=== PATIENT | male | born 1960 | race Caucasian/White ===

== ENCOUNTER → 2017-04-05 09:48 | Outpatient (POV) | payer BC, SELFPAY | PROVIDERS: Family Provider Internal Medicine; PCP Internal Medicine; Visit Provider Dermatology | DX: Z00.00 Encounter for general adult medical examination without abnormal findings (principal) ==

== ENCOUNTER → 2019-03-08 07:35 | Outpatient (CLI) | payer BC, SELFPAY ==
[2019-03-08 09:59] LABS: Alanine Aminotransferase 32 U/L (12-78); Albumin Level 3.7 gm/dL (3.4-5.0); Albumin/Globulin Ratio 1.1 (1.1-1.8); Alkaline Phosphatase 55 U/L (46-116); Anion Gap 12.3 mEq/L (5-15); Aspartate Amino Transferase 21 U/L (15-37); Bilirubin,Total 0.5 mg/dL (0.2-1.0); Blood Urea Nitrogen 12 mg/dL (7-18); Calcium 8.5 mg/dL (8.5-10.1); Carbon Dioxide 30 mmol/L (21.0-32.0); Chloride 104 mmol/L (98-107); Chol/HDL Ratio 5.9 (1-3.5); Cholesterol 208 mg/dL (140-200); Estimated Glomerular Filt Rate 69 ml/min (>60); GFR (African American) 83 ML/MIN (>60); Globulin 3.3 gm/dl (1.3-3.2); Glucose 102 mg/dL (74-106); HDL Cholesterol 35 mg/dL (27-67); LDL Cholesterol 138 mg/dL (0-130); Potassium 4.3 mmoL/L (3.5-5.1); Prostate Specific Ag, Diagnost 3.65 ng/mL (0.0-4.0); Sodium 142 mmol/L (136-145); Triglycerides 174 mg/dL (30-200); VLDL Cholesterol 35 mg/dL (0-40)
== END ==
PROVIDERS: Visit Provider Internal Medicine
DX: I10 Essential (primary) hypertension (principal); E78.5 Hyperlipidemia, unspecified; K58.0 Irritable bowel syndrome with diarrhea; R97.20 Elevated prostate specific antigen [PSA]
CPT/HCPCS: 36415; 80053; 80061; 84153

== ENCOUNTER → 2019-04-01 14:41 | Outpatient (POV) | payer BC, SELFPAY | PROVIDERS: Visit Provider Dermatology | DX: Z00.00 Encounter for general adult medical examination without abnormal findings (principal) ==

== ENCOUNTER 2020-03-25 09:03 | Emergency (ER) | payer BC, SELFPAY ==
[2020-03-25 09:10] VITALS: BP 137/81; PULSE 85; RESP 20; TEMP 37; O2SAT 100; BMI 30.2
--- NOTE | 2020-03-25 09:23 | HMH.EDUTC ---
[facility] [place] Disposition Clinical Impression: Sinusitis Qualifiers: Sinusitis location: unspecified location Chronicity: acute Recurrence: non-recurrent Qualified Code(s): J01.90 - Acute sinusitis, unspecified Disposition: Home, Self-Care Condition on Discharge: Good Instructions: Sinusitis, DI for Sinusitis Additional Instructions: Drink plenty of fluids. Take tylenol for pain or fever. Return if you begin to have difficulty breathing. Follow up with your regular doctor. GO TO THE ER FOR ANY WORSENING SYMPTOMS Prescriptions: methylPREDNISolone [Medrol] 4 mg PO DIRECTED 6 Days #21 tab.[email or web address] Transmission Status: Received by [id number] Cefdinir [Omnicef 300mg Capsule] 300 mg PO BID #20 cap Transmission Status: Received by [id number] Benzonatate [Tessalon Perle 100mg Cap] 100 mg PO TIDP PRN #30 cap PRN Reason: Cough Transmission Status: Received by [id number] Referrals: Yoni Norman [Primary Care Provider] - Forms: Work/School Release Time of Disposition: 09:30 Medical Decision Making - Medical Records Medical records reviewed: No: I reviewed the patient's medical records. - Jose Luis Inquiry Pt receiving controlled substance: No Vital Signs: 03/25/20 09:10 03/25/20 09:38 Temperature 98.6 F 98.6 F Temperature Source Oral Pulse Rate 85 Pulse Rate [Right Brachial] 85 Respiratory Rate 20 20 Blood Pressure 137/81 Blood Pressure [Right Arm] 137/81 Blood Pressure Mean [Right Arm] 99 Blood Pressure Source [Right Arm] Automatic Cuff Blood Pressure Position [Right Arm] Sitting 02 Sat by Pulse Oximetry 100 Oxygen Delivery Method Room Air [facility] [place] HPI - General Stated complaint: Sinuses Time Seen by Provider: 03/25/20 09:23 - History of Present Illness Provider Complaint: He c/o 2 days of worsening sinus congestion. He works at [employer] and he gets tested weekly for covid. He states he had a negative covid test 2 days ago (since his current symptoms began). - Related Data Previous Rx's Medication Instructions Recorded Albuterol Sulfate [Albuterol HFA 1 - 2 puffs IH Q4-6H PRN #1 inh 05/08/19 Inhaler] Brompheniramine/Pseudoephed/Dm 5 ml PO Q6HP PRN #240 syrup 05/08/19 [Bromfed Dm Cough Syrup] Cefdinir [Omnicef 300mg Capsule] 300 mg PO BID #20 cap 05/08/19 methylPREDNISolone [Medrol] 4 mg PO DIRECTED 6 Days #21 05/08/19 tab.ds.pk Benzonatate [Tessalon Perle 100mg 100 mg PO TIDP PRN #30 cap 03/25/20 Cap] Cefdinir [Omnicef 300mg Capsule] 300 mg PO BID #20 cap 03/25/20 methylPREDNISolone [Medrol] 4 mg PO DIRECTED 6 Days #21 03/25/20 tab.ds.pk Allergies Allergy/AdvReac Type Severity Reaction Status Date / Time No Known Allergies Allergy Verified 11/03/17 18:33 [facility] History - Hepatitis A Screen Attestation statement:: This patient has been screened for Hepatitis A risk factors. I have reviewed the patient's past medical history: Yes Medical History: Denies:: Cancer, Diabetes Mellitus Type 1, Diabetes Mellitus Type 2, Hypertension, MRSA Other Surgeries: Yes: Cholecystectomy Amputation: No Fractures: No - Social History Smoking Status: Never smoker Alcohol Intake: never Occupational Status: other ROS Obtained: Yes All systems reviewed & no additional complaints - Constitutional Constitutional: Reports system reviewed and no additional complaints, except as docu - Eyes Eyes: Reports system reviewed and no additional complaints, except as docu - ENT Ears, Nose, Mouth, and Throat: Reports system reviewed and no additional complaints, except as docu - Cardiovascular Cardiovascular: Reports system reviewed and no additional complaints, except as docu - Respiratory Respiratory: Yes system reviewed and no additional complaints, except as docu - Gastrointestinal Gastrointestingal: Reports: system reviewed and no additional complaints, except as docu Physical Exam - General General appearance: juana
[2020-03-25 09:38] VITALS: BP 137/81; PULSE 85; RESP 20; TEMP 37; O2SAT 100
== END 2020-03-25 09:40 | disposition home or self-care (01) ==
PROVIDERS: Emergency Provider Nurse Practitioner Family; PCP Internal Medicine
DX: J01.90 Acute sinusitis, unspecified (principal); E78.5 Hyperlipidemia, unspecified
CPT/HCPCS: 99201

== ENCOUNTER → 2020-08-06 09:52 | Outpatient (CLI) | payer BC, SELFPAY ==
--- NOTE | 2020-08-06 09:56 | XR_ITS ---
PROCEDURE: XR CALCANEUS RT MIN 2V CLINICAL INDICATION: RT HEEL INJURY 1 WEEK AGO, PAIN COMPARISON: No exams were available for comparison FINDINGS: No fracture or dislocation. No lytic or blastic change. There is normal mineralization. The joint spaces are well-preserved. No significant degenerative/arthritic changes. No erosive changes evident. Other findings:None. IMPRESSION: No acute findings. Dictated by: Dylan York MD 08/06/2020 11:26 Dylan York MD in [place] 08/06/2020 11:26
== END ==
PROVIDERS: PCP Internal Medicine; Visit Provider Internal Medicine
DX: S99.921A Unspecified injury of right foot, initial encounter (principal); M79.671 Pain in right foot
CPT/HCPCS: 73650

== ENCOUNTER 2021-03-01 15:56 | Emergency (ER) | payer BC, SELFPAY ==
[2021-03-01 16:41] VITALS: BP 124/89; PULSE 91; RESP 20; TEMP 36.9; O2SAT 97; BMI 31.7
[2021-03-01 16:53] LABS: UTC Strep Screen (Rapid) Positive (Negative)
--- NOTE | 2021-03-01 17:21 | HMH.EDUTC ---
[facility] [place] Clinical Impression: Strep throat Sinusitis Qualifiers: Sinusitis location: unspecified location Chronicity: acute Recurrence: non-recurrent Qualified Code(s): J01.90 - Acute sinusitis, unspecified Disposition: Home, Self-Care Condition on Discharge: Good Instructions: Strep Throat, DI for Strep Throat Additional Instructions: Drink plenty of fluids. Take tylenol or ibuprofen for pain or fever. Take the medications as directed. Follow up with your regular doctor. GO TO THE ER FOR ANY WORSENING SYMPTOMS Throw your tooth brush away and get a new one. Prescriptions: Benzonatate [Benzonatate 100mg cap] 100 mg PO TIDP PRN #30 cap PRN Reason: Cough Transmission Status: Received by [id number] predniSONE [Prednisone 20mg Tab] 20 mg PO BID 3 Days #6 tab Transmission Status: Received by [id number] Azithromycin [Z-Demarco 250mg Tab*] 250 mg PO UD DOSE PK #6 tab Transmission Status: Received by [id number] Referrals: Yoni Norman [Primary Care Provider] - Forms: Work/School Release Time of Disposition: 17:28 Medical Decision Making - Medical Records Medical records reviewed: No: I reviewed the patient's medical records. - Jose Luis Inquiry Pt receiving controlled substance: No Vital Signs: 03/01/21 16:41 03/01/21 17:31 Temperature 98.4 F 98.4 F Temperature Source Oral Pulse Rate 91 H Pulse Rate [Left] 91 H Respiratory Rate 20 20 Blood Pressure 124/89 Blood Pressure [Right Arm] 124/89 Blood Pressure Mean [Right Arm] 100 02 Sat by Pulse Oximetry 97 - Lab Data Lab results reviewed: Yes: I reviewed the patient's lab results. Lab Results 03/01/21 16:53: Strep Scn Rapid Clinic Positive A [facility] [place] - General Stated complaint: sore throat,congestion Time Seen by Provider: 03/01/21 17:21 Mode of Arrival: Ambulatory Source of Information: Patient Limitations: No Limitations Description of Symptoms (Recalled from Triage Doc. by RN): pt c/o STOUT, sinus congestion/drainage and sore throat. HEENT Symptoms (Recalled from RN notes): Yes (nasal drainage/congestion and sore throat) Resp Symptoms (Recalled from RN notes): No Skin Symptoms (Recalled from RN notes): No MS Symptoms (Recalled from RN notes): No Functional Status (Recalled from RN notes): wnl - History of Present Illness Provider Complaint: He states that for the past 2 days he has had sinus drainage and a sore throat. She has a cough also. He has been fully vaccinated against covid-19. - Related Data Home Medications Medication Instructions Recorded Confirmed citalopram 20 mg tablet 20 mg PO DAILY 11/25/20 11/25/20 colestipol 1 gram tablet 1 g PO BID 11/25/20 11/25/20 esomeprazole magnesium 40 mg 40 mg PO DAILY 11/25/20 11/25/20 capsule,delayed release fluticasone propionate 50 1 spray INTRANASAL DAILY 11/25/20 11/25/20 mcg/actuation nasal spray,suspension Previous Rx's Medication Instructions Recorded Azithromycin [Z-Demarco 250mg Tab*] 250 mg PO UD DOSE PK #6 tab 03/01/21 Benzonatate [Benzonatate 100mg 100 mg PO TIDP PRN #30 cap 03/01/21 cap] predniSONE [Prednisone 20mg 20 mg PO BID 3 Days #6 tab 03/01/21 Tab] Allergies Allergy/AdvReac Type Severity Reaction Status Date / Time No Known Drug Allergies Allergy Unknown Verified 11/25/20 08:53 - Worker's Comp Is this a Worker's Comp case?: No [facility] History - Hepatitis A Screen Drug use history?: No High risk sexual behaviors?: No History of sexually transmitted infection?: No Currently employed?: No Childcare worker?: No Do you have indoor plumbing?: Yes Do you have electricity?: Yes Attestation statement:: This patient has been screened for Hepatitis A risk factors. I have reviewed the patient's past medical history: Yes Medical History: Reports:: Gastroesophageal Reflux Disease(GERD) Denies:: Cancer, Diabetes Mellitus Type 1, Diabetes Mellitus Type 2, Hypertension,
[2021-03-01 17:31] VITALS: BP 124/89; PULSE 91; RESP 20; TEMP 36.9
== END 2021-03-01 17:42 | disposition home or self-care (01) ==
PROVIDERS: Emergency Provider Nurse Practitioner Family; PCP Internal Medicine
DX: J02.0 Streptococcal pharyngitis (principal); J01.90 Acute sinusitis, unspecified; K21.9 Gastro-esophageal reflux disease without esophagitis; Z87.891 Personal history of nicotine dependence
CPT/HCPCS: 87880; 99202; G0463

== ENCOUNTER → 2021-04-29 11:53 | Outpatient (CLI) | payer BC, SELFPAY ==
[2021-04-29 12:38] LABS: Alanine Aminotransferase 32 U/L (12-78); Albumin Level 4.5 g/dl (3.5-5.0); Albumin/Globulin Ratio 1.7 (1.1-1.8); Alkaline Phosphatase 57 U/L (38-126); Aspartate Amino Transferase 43 U/L (17-59); Bilirubin,Total 0.8 mg/dl (0.2-1.3); Blood Urea Nitrogen 17 mg/dl (9-20); Calcium 9.3 mg/dl (8.4-10.2); Carbon Dioxide 27 mmol/L (22.0-30.0); Chloride 104 mmol/L (98-107); Chol/HDL Ratio 6.4 (1-3.5); Cholesterol 210 mg/dl (140-200); Estimated Glomerular Filt Rate 69 ml/min (>60); GFR (African American) 83 ML/MIN (>60); Globulin 2.6 g/dL (1.3-3.2); Glucose 99 mg/dl (74-100); HDL Cholesterol 33 mg/dl (40-60); Sodium 140 mmol/L (136-145); Total Protein,Serum 7.1 g/dl (6.3-8.2); Triglycerides 141 mg/dl (30-150); VLDL Cholesterol 28 mg/dL (0-40)
[2021-04-29 12:49] LABS: Direct LDL Cholesterol 145.37 mg/dL (100-129)
== END ==
PROVIDERS: Visit Provider Internal Medicine
DX: K58.0 Irritable bowel syndrome with diarrhea (principal); K21.9 Gastro-esophageal reflux disease without esophagitis; E78.5 Hyperlipidemia, unspecified
CPT/HCPCS: 80053; 80061; 83735

== ENCOUNTER 2021-07-18 16:19 | Emergency (ER) | payer BC, SELFPAY ==
[2021-07-18 17:11] VITALS: BP 129/71; PULSE 72; RESP 19; TEMP 36.5; O2SAT 95; BMI 31.0
--- NOTE | 2021-07-18 17:36 | HMH.EDUTC ---
[facility] [place] Clinical Impression: Sinusitis Qualifiers: Sinusitis location: unspecified location Chronicity: acute Recurrence: non-recurrent Qualified Code(s): J01.90 - Acute sinusitis, unspecified Disposition: Home, Self-Care Condition on Discharge: Good Instructions: Sinusitis, DI for Sinusitis Additional Instructions: Drink plenty of fluids. Take tylenol or ibuprofen for pain or fever. Take the medications as directed. Follow up with your regular doctor. GO TO THE ER FOR ANY WORSENING SYMPTOMS Don't start the oral steroids until tomorrow, since you had the shot here today. Prescriptions: Amoxicillin/Potassium Clav [Amox-Clav 875-125 mg Tablet] 1 tab PO BID #20 tab Transmission Status: Received by [facility] Benzonatate [Benzonatate 100mg cap] 100 mg PO TIDP PRN #30 cap PRN Reason: Cough Transmission Status: Received by [facility] methylPREDNISolone [Medrol] 4 mg PO DIRECTED 6 Days #21 packet Transmission Status: Received by [facility] Referrals: Yoni Norman [Primary Care Provider] - Time of Disposition: 17:43 Medical Decision Making - Medical Records Medical records reviewed: No: I reviewed the patient's medical records. - Jose Luis Inquiry Pt receiving controlled substance: No Vital Signs: 07/18/21 17:11 07/18/21 17:58 Temperature 97.7 F 97.7 F Temperature Source Oral Pulse Rate 72 Pulse Rate [Left] 72 Respiratory Rate 19 19 Blood Pressure 129/71 Blood Pressure [Right Arm] 129/71 Blood Pressure Mean [Right Arm] 90 02 Sat by Pulse Oximetry 95 Orders (Tests/Meds): ED MEDICATIONS Discontinued Medications Generic Name Dose Route Start Last Admin Trade Name Freq PRN Reason Stop Dose Admin Ceftriaxone Sodium 1 gm 07/18/21 17:35 07/18/21 17:45 Ceftriaxone 1gm Vial IM 07/18/21 17:36 1 gm ONCE ONE Administration Lidocaine HCl 0 ml 07/18/21 17:35 07/18/21 17:45 Lidocaine 1% 5ml Pf Vial IM 07/18/21 17:36 2 ml ONCE ONE Administration Methylprednisolone Sodium Succinate 125 mg 07/18/21 17:35 07/18/21 17:45 Methylprednisolone Sod Succ 125mg Vial IM 07/18/21 17:36 125 mg ONCE ONE Administration [facility] [place] - General Stated complaint: sinus,congestion Time Seen by Provider: 07/18/21 17:36 Mode of Arrival: Ambulatory Source of Information: Patient Limitations: No Limitations Description of Symptoms (Recalled from Triage Doc. by RN): pt c/o sinus pressure/congestion/drainage and sneezing. HEENT Symptoms (Recalled from RN notes): Yes Resp Symptoms (Recalled from RN notes): No Skin Symptoms (Recalled from RN notes): No MS Symptoms (Recalled from RN notes): No Functional Status (Recalled from RN notes): wnl - History of Present Illness Provider Complaint: He c/o sinus congestion and nasal congestion for the past 5 days. - Related Data Home Medications Medication Instructions Recorded Confirmed citalopram 20 mg tablet 20 mg PO DAILY 11/25/20 11/25/20 colestipol 1 gram tablet 1 g PO BID 11/25/20 11/25/20 esomeprazole magnesium 40 mg 40 mg PO DAILY 11/25/20 11/25/20 capsule,delayed release fluticasone propionate 50 1 spray INTRANASAL DAILY 11/25/20 11/25/20 mcg/actuation nasal spray,suspension Previous Rx's Medication Instructions Recorded Azithromycin [Z-Demarco 250mg Tab*] 250 mg PO UD DOSE PK #6 tab 03/01/21 Benzonatate [Benzonatate 100mg 100 mg PO TIDP PRN #30 cap 03/01/21 cap] predniSONE [Prednisone 20mg 20 mg PO BID 3 Days #6 tab 03/01/21 Tab] Amoxicillin/Potassium Clav 1 tab PO BID #20 tab 07/18/21 [Amox-Clav 875-125 mg Tablet] Benzonatate [Benzonatate 100mg 100 mg PO TIDP PRN #30 cap 07/18/21 cap] methylPREDNISolone [Medrol] 4 mg PO DIRECTED 6 Days #21 07/18/21 packet Allergies Allergy/AdvReac Type Severity Reaction Status Date / Time No Known Drug Allergies Allergy Unknown Verified 11/25/20 08:53 - Worker's Comp Is th
[2021-07-18 17:58] VITALS: BP 129/71; PULSE 72; RESP 19; TEMP 36.5
== END 2021-07-18 18:00 | disposition home or self-care (01) ==
PROVIDERS: Emergency Provider Nurse Practitioner Family; PCP Internal Medicine
DX: J01.90 Acute sinusitis, unspecified (principal); K21.9 Gastro-esophageal reflux disease without esophagitis; Z79.51 Long term (current) use of inhaled steroids; Z79.52 Long term (current) use of systemic steroids; Z79.899 Other long term (current) drug therapy; Z87.891 Personal history of nicotine dependence
CPT/HCPCS: 96372; 99213; G0463; J0696

== ENCOUNTER → 2021-11-29 15:23 | Outpatient (CLI) | payer BC, SELFPAY | PROVIDERS: PCP Internal Medicine; Visit Provider Internal Medicine | DX: G47.33 Obstructive sleep apnea (adult) (pediatric) (principal); R40.0 Somnolence; R06.83 Snoring | CPT/HCPCS: G0399 ==

== ENCOUNTER 2021-12-08 11:44 | Emergency (ER) | payer BC, OTHER, SELFPAY ==
[2021-12-08 12:05] VITALS: BP 129/80; PULSE 85; RESP 19; TEMP 36.7; O2SAT 97; BMI 30.2
--- NOTE | 2021-12-08 12:34 | EXP.UTC ---
Discharge Plan Disposition Patient Disposition: Home, Self-Care Condition: Good Prescriptions Prescriptions: New methylprednisolone [Medrol (Demarco)] 4 mg tablets,dose pack See Rx Instructions .Route .COMPLEX 6 Days Qty: 21 0RF Rx Instructions: taper pack; amoxicillin-pot clavulanate 875-125 mg Tablet 1 tab PO Q12H Qty: 20 0RF No Action citalopram 20 mg tablet 20 mg PO DAILY colestipol 1 gram tablet 1 g PO BID esomeprazole magnesium 40 mg capsule,delayed release(DR/EC) 40 mg PO DAILY fluticasone propionate 50 mcg/actuation spray,suspension 1 spray INTRANASAL DAILY Rx Instructions: administer into each nostril prednisone 20 MG tablet 20 mg PO BID 3 Days Qty: 6 0RF benzonatate 100 MG capsule 100 mg PO TIDP PRN (Reason: Cough) Qty: 30 0RF methylprednisolone 4 MG tablets,dose pack 4 mg PO DIRECTED 6 Days Qty: 21 0RF Referrals Follow up/Referrals: Yoni Norman MD [Primary Care Provider] - See instructions Activity Restrictions/Add. Instructions Additional Instructions/Restrictions: Monitor Temp, Over the counter Motrin or Tylenol as directed/as needed Tylenol every 4 hours and Motrin every 6 hours (as long as your family doctor has told you that you can take it) for fever or pain. and straight to ER if unable to lower temp less than 101.0 after medication given *Warm salt water gargles may help to soothe the throat *Throat Lozenges? *Warm fluids like tea with honey may help to soothe the throat? *Sleep elevated *Humidifier/Vaporizer Follow up IMMEDIATELY for new or worsening symptoms or no Noticeable improvement over the next 48-72 hours. 911 for difficulty breathing or swallowing Clinical Impressions Clinical Impression: Sinusitis Instructions Patient Instructions: DI for Sinusitis, Sinusitis, Middle Ear Infection Discharge ED Provider: Shahnaz Burr [facility] [place] General Stated complaint: sinus congestion Mode of Arrival: Ambulatory Source of Information: Patient Limitations: No Limitations Time Seen by Provider: 12/08/21 12:35 Description of Symptoms (Recalled from Triage Doc. by RN): PATIENT C/O SINUS PRESSURE AND COUGHING UP MUCOUS X 1 WEEK HEENT Symptoms (Recalled from RN notes): Yes Resp Symptoms (Recalled from RN notes): Yes Skin Symptoms (Recalled from RN notes): No MS Symptoms (Recalled from RN notes): No Functional Status (Recalled from RN notes): WNL History of Present Illness Provider Complaint: Patient state that he went camping about a week ago and has been having sinus problems ever since States that he is having sinus pain and pressure, cough, pain in both ears and feeling of fullness in ears States that today he coughed up a little mucous so he came in to get checked before it got into his chest Related Data Home Medications Medication Instructions Recorded Confirmed citalopram 20 mg tablet 20 mg PO DAILY 11/25/20 10/21/21 colestipol 1 gram tablet 1 g PO BID 11/25/20 10/21/21 esomeprazole magnesium 40 mg 40 mg PO DAILY 11/25/20 10/21/21 capsule,delayed release fluticasone propionate 50 1 spray intranasal DAILY 11/25/20 10/21/21 mcg/actuation nasal spray,suspension Previous Rx's Medication Instructions Recorded prednisone 20 mg tablet 20 mg PO BID 3 days #6 tabs 03/01/21 benzonatate 100 mg capsule 100 mg PO TIDP PRN Cough #30 caps 07/18/21 methylprednisolone 4 mg tablets in 4 mg PO DIRECTED 6 days #21 07/18/21 a dose pack packets amoxicillin 875 mg-potassium 1 tab PO Q12H #20 tabs 12/08/21 clavulanate 125 mg tablet methylprednisolone 4 mg tablets in See Rx Instructions .Route 12/08/21 a dose pack (Medrol (Demarco)) .COMPLEX 6 days #21 tabs Allergies Allergy/AdvReac Type Severity Reaction Status Date / Time No Known Drug Allergies Allergy Unknown Verified 10/21/21 09:45 Worker's Comp Is this a Worker's Comp case?: No PFSH PFSH Surgical History (Updated 12/08/21
[2021-12-08 12:46] VITALS: BP 129/80; PULSE 85; RESP 19; TEMP 36.7; O2SAT 97
== END 2021-12-08 12:49 | disposition home or self-care (01) ==
PROVIDERS: Emergency Provider Nurse Practitioner; PCP Internal Medicine
DX: J32.9 Chronic sinusitis, unspecified (principal)
CPT/HCPCS: 99212; G0463

== ENCOUNTER → 2022-03-31 11:33 | Outpatient (CLI) | payer BC, OTHER, SELFPAY ==
[2022-03-31 14:34] LABS: Basophils # 0.1 K/mm3 (0-0.2); Basophils % 1.9 % (0.1-2.0); Eosinophils # 0.2 K/mm3 (0.0-0.4); Hematocrit 46.5 % (42.0-52.0); Hemoglobin 15.6 g/dL (14.1-18.0); Lymphocytes # 1.4 K/mm3 (0.7-4.5); Lymphocytes % 32.8 % (10-50); Mean Corpuscular HGB Conc 33.6 g/dL (31.8-35.4); Mean Corpuscular Hemoglobin 31.5 pg (27.0-31.2); Mean Corpuscular Volume 93.7 fl (80-94); Mean Platelet Volume 8.5 fl (7.4-10.4); Monocytes # 0.3 K/mm3 (0.1-1.0); Monocytes % 8.1 % (1.7-9.3); Neutrophils # 2.2 K/mm3 (1.8-7.8); Neutrophils % 52.3 % (37.0-80.0); Platelet Count 283 K/mm3 (142-424); Red Blood Count 4.96 M/mm3 (4.60-6.20); Red Cell Distribution Width 12.7 % (11.5-17.5); White Blood Count 4.3 K/mm3 (4.8-10.8)
[2022-03-31 14:54] LABS: Alanine Aminotransferase 34 U/L (12-78); Albumin Level 4.3 g/dl (3.5-5.0); Albumin/Globulin Ratio 1.6 (1.1-1.8); Alkaline Phosphatase 62 U/L (38-126); Aspartate Amino Transferase 32 U/L (17-59); Bilirubin,Total 0.5 mg/dl (0.2-1.3); Blood Urea Nitrogen 18 mg/dl (9-20); Calcium 8.6 mg/dl (8.4-10.2); Carbon Dioxide 28 mmol/L (22.0-30.0); Chloride 103 mmol/L (98-107); Chol/HDL Ratio 5.8 (1-3.5); Cholesterol 192 mg/dl (140-200); Estimated Glomerular Filt Rate 68 ml/min (>60); GFR (African American) 83 ML/MIN (>60); Globulin 2.7 g/dL (1.3-3.2); Glucose 101 mg/dl (74-100); HDL Cholesterol 33 mg/dl (40-60); Sodium 137 mmol/L (136-145); Triglycerides 188 mg/dl (30-150); VLDL Cholesterol 38 mg/dL (0-40)
[2022-03-31 15:05] LABS: Direct LDL Cholesterol 119.53 mg/dL (100-129)
[2022-03-31 15:24] LABS: Prostate Specific Ag Screen 5.4 ng/ml (0.0-4.0)
== END ==
PROVIDERS: PCP Internal Medicine; Visit Provider Internal Medicine
DX: J30.9 Allergic rhinitis, unspecified (principal); E78.5 Hyperlipidemia, unspecified; K21.9 Gastro-esophageal reflux disease without esophagitis; F41.9 Anxiety disorder, unspecified; Z12.5 Encounter for screening for malignant neoplasm of prostate
CPT/HCPCS: 80053; 80061; 85025; G0103

== ENCOUNTER 2022-05-20 15:46 | Emergency (ER) | payer BC, OTHER, SELFPAY ==
--- NOTE | 2022-05-20 15:50 | EXP.UTC ---
Discharge Plan Prescriptions Prescriptions: No Action citalopram 20 mg tablet 20 mg PO DAILY colestipol 1 gram tablet 1 g PO BID esomeprazole magnesium 40 mg capsule,delayed release(DR/EC) 40 mg PO DAILY fluticasone propionate 50 mcg/actuation spray,suspension 1 spray INTRANASAL DAILY Rx Instructions: administer into each nostril prednisone 20 MG tablet 20 mg PO BID 3 Days Qty: 6 0RF methylprednisolone [Medrol (Demarco)] 4 mg tablets,dose pack See Rx Instructions .Route .COMPLEX 6 Days Qty: 21 0RF Rx Instructions: taper pack; amoxicillin-pot clavulanate 875-125 mg Tablet 1 tab PO Q12H Qty: 20 0RF benzonatate 100 MG capsule 100 mg PO TIDP PRN (Reason: Cough) Qty: 30 0RF methylprednisolone 4 MG tablets,dose pack 4 mg PO DIRECTED 6 Days Qty: 21 0RF Referrals Follow up/Referrals: Yoni Norman MD [Primary Care Provider] - See instructions Discharge ED Provider: Bud ([facility])[place] [facility] [place] H[place] General Stated complaint: sinus pressure,cough benites Mode of Arrival: Ambulatory Source of Information: Patient and Parent(s) Limitations: No Limitations Time Seen by Provider: 05/20/22 15:50 HEENT Symptoms (Recalled from RN notes): Yes Resp Symptoms (Recalled from RN notes): No Related Data Home Medications Medication Instructions Recorded Confirmed citalopram 20 mg tablet 20 mg PO DAILY 11/25/20 10/21/21 colestipol 1 gram tablet 1 g PO BID 11/25/20 10/21/21 esomeprazole magnesium 40 mg 40 mg PO DAILY 11/25/20 10/21/21 capsule,delayed release fluticasone propionate 50 1 spray intranasal DAILY 11/25/20 10/21/21 mcg/actuation nasal spray,suspension Previous Rx's Medication Instructions Recorded prednisone 20 mg tablet 20 mg PO BID 3 days #6 tabs 03/01/21 benzonatate 100 mg capsule 100 mg PO TIDP PRN Cough #30 caps 07/18/21 methylprednisolone 4 mg tablets in 4 mg PO DIRECTED 6 days #21 07/18/21 a dose pack packets amoxicillin 875 mg-potassium 1 tab PO Q12H #20 tabs 12/08/21 clavulanate 125 mg tablet methylprednisolone 4 mg tablets in See Rx Instructions .Route 09/08/22 a dose pack (Medrol (Demarco)) .COMPLEX 6 days #21 tabs Allergies Allergy/AdvReac Type Severity Reaction Status Date / Time No Known Drug Allergies Allergy Unknown Verified 10/21/21 09:45 [facility] Disclaimer: The information contained in this section may have been updated after the patient was seen, as this information can be updated by other users. Surgical History (Updated 12/08/21 @ 12:21 by Carol Greer RN) History of cholecystectomy Social History Smoking Status: Former smoker second hand exposure: No alcohol intake: current substance use type: denies use current occupational status: employed Travel in the last 8 weeks: None household members: spouse housing: house
[2022-05-20 16:00] VITALS: BP 117/86; PULSE 86; RESP 17; TEMP 36.8; O2SAT 98; BMI 31.6
--- NOTE | 2022-05-20 16:11 | EXP.UTC ---
Discharge Plan Disposition Patient Disposition: Home, Self-Care Condition: Good Prescriptions Prescriptions: New amoxicillin [amoxicillin] 500 mg tablet 500 mg PO BID 10 Days Qty: 20 0RF No Action citalopram 20 mg tablet 20 mg PO DAILY colestipol 1 gram tablet 1 g PO BID esomeprazole magnesium 40 mg capsule,delayed release(DR/EC) 40 mg PO DAILY fluticasone propionate 50 mcg/actuation spray,suspension 1 spray INTRANASAL DAILY Rx Instructions: administer into each nostril prednisone 20 MG tablet 20 mg PO BID 3 Days Qty: 6 0RF methylprednisolone [Medrol (Demarco)] 4 mg tablets,dose pack See Rx Instructions .Route .COMPLEX 6 Days Qty: 21 0RF Rx Instructions: taper pack; amoxicillin-pot clavulanate 875-125 mg Tablet 1 tab PO Q12H Qty: 20 0RF benzonatate 100 MG capsule 100 mg PO TIDP PRN (Reason: Cough) Qty: 30 0RF methylprednisolone 4 MG tablets,dose pack 4 mg PO DIRECTED 6 Days Qty: 21 0RF Referrals Follow up/Referrals: Yoni Norman MD [Primary Care Provider] - See instructions Activity Restrictions/Add. Instructions Additional Instructions/Restrictions: Start antibiotic patient to take as ordered for a full length of time even if you feel better. Sinus infections do not get better overnight. It may take 2-3 days to notice much improvement so be sure to use conservative measures as discussed for symptoms. Flonase 1 spray each nostril daily to help with nasal congestion, sinus and ear pressure/information Increase fluids Humidifier/vaporizer as needed Tylenol and ibuprofen as needed for fever or pain. If symptoms do not improve or get worse return or be seen in the ER Follow-up with primary care this week Clinical Impressions Clinical Impression: Sinusitis Instructions Patient Instructions: DI for Sinusitis Discharge ED Provider: Bud ([facility])[place] [facility] [place] HPI General Stated complaint: sinus pressure,cough benites Mode of Arrival: Ambulatory Source of Information: Patient Limitations: No Limitations Time Seen by Provider: 05/20/22 16:12 Description of Symptoms (Recalled from Triage Doc. by RN): PATIENT C/O POSSIBLE SINUS INFECTION X 3 DAYS HEENT Symptoms (Recalled from RN notes): Yes Resp Symptoms (Recalled from RN notes): No Skin Symptoms (Recalled from RN notes): No MS Symptoms (Recalled from RN notes): No Functional Status (Recalled from RN notes): WNL History of Present Illness Provider Complaint: 62 YR OLD MALE PRESNETS FOR THICK YELLOW SINUS DRAINAGE, SINUS PRESSURE, COUGH, PRESSURE BEHIND EYES AND CONGESTION Related Data Home Medications Medication Instructions Recorded Confirmed citalopram 20 mg tablet 20 mg PO DAILY 11/25/20 10/21/21 colestipol 1 gram tablet 1 g PO BID 11/25/20 10/21/21 esomeprazole magnesium 40 mg 40 mg PO DAILY 11/25/20 10/21/21 capsule,delayed release fluticasone propionate 50 1 spray intranasal DAILY 11/25/20 10/21/21 mcg/actuation nasal spray,suspension Previous Rx's Medication Instructions Recorded prednisone 20 mg tablet 20 mg PO BID 3 days #6 tabs 03/01/21 benzonatate 100 mg capsule 100 mg PO TIDP PRN Cough #30 caps 07/18/21 methylprednisolone 4 mg tablets in 4 mg PO DIRECTED 6 days #21 07/18/21 a dose pack packets amoxicillin 875 mg-potassium 1 tab PO Q12H #20 tabs 12/08/21 clavulanate 125 mg tablet methylprednisolone 4 mg tablets in See Rx Instructions .Route 12/08/21 a dose pack (Medrol (Demarco)) .COMPLEX 6 days #21 tabs amoxicillin 500 mg tablet 500 mg PO BID 10 days #20 tabs 05/20/22 Allergies Allergy/AdvReac Type Severity Reaction Status Date / Time No Known Drug Allergies Allergy Unknown Verified 10/21/21 09:45 Worker's Comp Is this a Worker's Comp case?: No [facility] Disclaimer: The information contained in this section may have been updated after the patient was seen, as this information can be updated by other users. Medical History (Reviewed 05/20/22
[2022-05-20 16:15] VITALS: BP 117/86; PULSE 86; RESP 17; TEMP 36.8; O2SAT 98
== END 2022-05-20 16:17 | disposition home or self-care (01) ==
PROVIDERS: Emergency Provider Nurse Practitioner Family; PCP Internal Medicine
DX: J32.9 Chronic sinusitis, unspecified (principal)
CPT/HCPCS: 99212; 99213; G0463

== ENCOUNTER → 2022-10-04 13:33 | Outpatient (CLI) | payer BC, OTHER, SELFPAY ==
[2022-10-04 15:02] LABS: Alanine Aminotransferase 42 U/L (12-78); Albumin Level 4.4 g/dl (3.5-5.0); Albumin/Globulin Ratio 1.6 (1.1-1.8); Alkaline Phosphatase 67 U/L (38-126); Anion Gap 12.5 mEq/L (5-15); Aspartate Amino Transferase 44 U/L (17-59); Bilirubin,Total 0.7 mg/dl (0.2-1.3); Blood Urea Nitrogen 17 mg/dl (9-20); Calcium 8.9 mg/dl (8.4-10.2); Carbon Dioxide 28 mmol/L (22.0-30.0); Chloride 105 mmol/L (98-107); Chol/HDL Ratio 5.5 (1-3.5); Cholesterol 183 mg/dl (140-200); Estimated Glomerular Filt Rate 68 ml/min (>60); GFR (African American) 83 ML/MIN (>60); Globulin 2.8 g/dL (1.3-3.2); Glucose 91 mg/dl (74-100); HDL Cholesterol 33 mg/dl (40-60); Potassium 4.5 mmoL/L (3.5-5.1); Sodium 141 mmol/L (136-145); Total Protein,Serum 7.2 g/dl (6.3-8.2); Triglycerides 182 mg/dl (30-150); VLDL Cholesterol 36 mg/dL (0-40)
[2022-10-04 15:13] LABS: Direct LDL Cholesterol 108.88 mg/dL (100-129)
== END ==
PROVIDERS: PCP Internal Medicine; Visit Provider Internal Medicine
DX: J30.9 Allergic rhinitis, unspecified (principal); K58.0 Irritable bowel syndrome with diarrhea; K21.9 Gastro-esophageal reflux disease without esophagitis; E78.5 Hyperlipidemia, unspecified; N40.1 Benign prostatic hyperplasia with lower urinary tract symptoms; Z12.5 Encounter for screening for malignant neoplasm of prostate
CPT/HCPCS: 80053; 80061

== ENCOUNTER 2023-01-28 09:52 | Emergency (ER) | payer BC, OTHER, SELFPAY ==
[2023-01-28 09:52] VITALS: BP 134/64; PULSE 83; RESP 18; TEMP 36.6; O2SAT 100; BMI 32.3
--- NOTE | 2023-01-28 10:12 | EXP.UTC ---
Discharge Plan Disposition Patient Disposition: Home, Self-Care Condition: Good Prescriptions Prescriptions: New methylprednisolone [Medrol (Demarco)] 4 mg tablets,dose pack See Rx Instructions .Route .COMPLEX 6 Days Qty: 21 0RF Rx Instructions: taper pack; amoxicillin-pot clavulanate 875-125 mg Tablet 1 tab PO Q12H Qty: 20 0RF No Action citalopram 20 mg tablet 20 mg PO DAILY colestipol 1 gram tablet 1 g PO BID esomeprazole magnesium 40 mg capsule,delayed release(DR/EC) 40 mg PO DAILY fluticasone propionate 50 mcg/actuation spray,suspension 1 spray INTRANASAL DAILY Rx Instructions: administer into each nostril Referrals Follow up/Referrals: Yoni Norman MD [Primary Care Provider] - See instructions Activity Restrictions/Add. Instructions Additional Instructions/Restrictions: Start oral steriods tomorrow Take Augmentin as prescribed Follow up with your Family Doctor if no improvement or any worsening of symptoms Return if needed Straight to ER if any life threatening symptoms Clinical Impressions Clinical Impression: Sinusitis Qualifiers: Sinusitis location: unspecified location Chronicity: unspecified Qualified Code(s): J32.9 - Chronic sinusitis, unspecified Instructions Patient Instructions: Sinusitis, Sinus Headache Discharge ED Provider: Shahnaz Burr [facility] General Stated complaint: congestion, cough, sore throat Mode of Arrival: Ambulatory Source of Information: Patient Limitations: No Limitations Time Seen by Provider: 01/28/23 10:12 Description of Symptoms (Recalled from Triage Doc. by RN): Sinus pressure HEENT Symptoms (Recalled from RN notes): Yes Resp Symptoms (Recalled from RN notes): No Skin Symptoms (Recalled from RN notes): No MS Symptoms (Recalled from RN notes): No Functional Status (Recalled from RN notes): n/a History of Present Illness Provider Complaint: Patient states that for the last week he has been having sinus pain and pressure States that he gets a sinus infection about this time every year states that he started this earlier in the week and has been taking OTC medications but havent helped so he came in Related Data Home Medications Medication Instructions Recorded Confirmed citalopram 20 mg tablet 20 mg PO DAILY 11/25/20 01/28/23 colestipol 1 gram tablet 1 g PO BID 11/25/20 01/28/23 esomeprazole magnesium 40 mg 40 mg PO DAILY 11/25/20 01/28/23 capsule,delayed release fluticasone propionate 50 1 spray intranasal DAILY 11/25/20 01/28/23 mcg/actuation nasal spray,suspension Previous Rx's Medication Instructions Recorded amoxicillin 875 mg-potassium 1 tab PO Q12H #20 tabs 01/28/23 clavulanate 125 mg tablet methylprednisolone 4 mg tablets in See Rx Instructions .Route 01/28/23 a dose pack (Medrol (Demarco)) .COMPLEX 6 days #21 tabs Allergies Allergy/AdvReac Type Severity Reaction Status Date / Time No Known Drug Allergies Allergy Unknown Verified 01/28/23 10:11 Worker's Comp Is this a Worker's Comp case?: No [facility] Disclaimer: The information contained in this section may have been updated after the patient was seen, as this information can be updated by other users. 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
[2023-01-28 10:52] VITALS: BP 134/64; PULSE 83; RESP 18; TEMP 36.6; O2SAT 100
== END 2023-01-28 10:45 | disposition home or self-care (01) ==
PROVIDERS: Emergency Provider Nurse Practitioner; PCP Internal Medicine
DX: J01.90 Acute sinusitis, unspecified (principal); Z87.891 Personal history of nicotine dependence
CPT/HCPCS: 96372; 99212; 99214; G0463

== ENCOUNTER 2023-04-11 14:20 | Outpatient (CLI) | payer OTHER, SELFPAY ==
[2023-04-11 15:35] LABS: Basophils # 0.1 K/mm3 (0-0.2); Basophils % 1.5 % (0.1-2.0); Eosinophils # 0.1 K/mm3 (0.0-0.4); Hematocrit 49.5 % (42.0-52.0); Hemoglobin 16.7 g/dL (14.1-18.0); Lymphocytes # 1.2 K/mm3 (0.7-4.5); Lymphocytes % 26.8 % (10-50); Mean Corpuscular HGB Conc 33.8 g/dL (31.8-35.4); Mean Corpuscular Hemoglobin 32.9 pg (27.0-31.2); Mean Corpuscular Volume 97.4 fl (80-94); Mean Platelet Volume 8.9 fl (7.4-10.4); Monocytes # 0.3 K/mm3 (0.1-1.0); Monocytes % 5.6 % (1.7-9.3); Neutrophils # 2.8 K/mm3 (1.8-7.8); Neutrophils % 63.2 % (37.0-80.0); Platelet Count 258 K/mm3 (142-424); Red Blood Count 5.08 M/mm3 (4.60-6.20); Red Cell Distribution Width 13.1 % (11.5-17.5); White Blood Count 4.5 K/mm3 (4.8-10.8)
[2023-04-11 16:14] LABS: Chloride 103 mmol/L (98-107); Potassium 4.1 mmoL/L (3.5-5.1); Sodium 140 mmol/L (136-145)
[2023-04-11 16:16] LABS: Alanine Aminotransferase 53 U/L (12-78); Aspartate Amino Transferase 48 U/L (17-59); Blood Urea Nitrogen 14 mg/dl (9-20); Estimated Glomerular Filt Rate 76 ml/min (>60); GFR (African American) 92 ML/MIN (>60)
[2023-04-11 16:17] LABS: Albumin Level 4.3 g/dl (3.5-5.0); Albumin/Globulin Ratio 1.5 (1.1-1.8); Alkaline Phosphatase 69 U/L (38-126); Anion Gap 12.1 mEq/L (5-15); Bilirubin,Total 0.8 mg/dl (0.2-1.3); Calcium 8.8 mg/dl (8.4-10.2); Carbon Dioxide 29 mmol/L (22.0-30.0); Cholesterol 185 mg/dl (140-200); Globulin 2.9 g/dL (1.3-3.2); Glucose 90 mg/dl (74-100); Total Protein,Serum 7.2 g/dl (6.3-8.2); Triglycerides 180 mg/dl (30-150); VLDL Cholesterol 36 mg/dL (0-40)
[2023-04-11 16:28] LABS: Direct LDL Cholesterol 113.34 mg/dL (100-129)
[2023-04-11 17:10] LABS: Chol/HDL Ratio 6.2 (1-3.5); HDL Cholesterol 30 mg/dl (40-60)
== END 2023-04-11 23:59 ==
PROVIDERS: PCP Internal Medicine; Visit Provider Internal Medicine
DX: E78.5 Hyperlipidemia, unspecified (principal); J30.9 Allergic rhinitis, unspecified; K21.9 Gastro-esophageal reflux disease without esophagitis; K58.0 Irritable bowel syndrome with diarrhea; Z87.891 Personal history of nicotine dependence
CPT/HCPCS: 80053; 80061; 85025

== ENCOUNTER 2023-10-17 14:55 | Outpatient (CLI) | payer OTHER, SELFPAY ==
[2023-10-17 15:50] LABS: Alanine Aminotransferase 41 U/L (12-78); Albumin Level 4.2 g/dl (3.5-5.0); Albumin/Globulin Ratio 1.4 (1.1-1.8); Alkaline Phosphatase 66 U/L (38-126); Anion Gap 10.9 mEq/L (5-15); Aspartate Amino Transferase 37 U/L (17-59); Bilirubin,Total 0.7 mg/dl (0.2-1.3); Blood Urea Nitrogen 14 mg/dl (9-20); Calcium 9.3 mg/dl (8.4-10.2); Carbon Dioxide 29 mmol/L (22.0-30.0); Chloride 105 mmol/L (98-107); Chol/HDL Ratio 5.6 (1-3.5); Cholesterol 200 mg/dl (140-200); Estimated Glomerular Filt Rate 76 ml/min (>60); GFR (African American) 92 ML/MIN (>60); Globulin 2.9 g/dL (1.3-3.2); Glucose 91 mg/dl (74-100); HDL Cholesterol 36 mg/dl (40-60); Potassium 3.9 mmoL/L (3.5-5.1); Sodium 141 mmol/L (136-145); Total Protein,Serum 7.1 g/dl (6.3-8.2); Triglycerides 207 mg/dl (30-150); VLDL Cholesterol 41 mg/dL (0-40)
[2023-10-17 16:01] LABS: Direct LDL Cholesterol 111.69 mg/dL (100-129)
== END 2023-10-17 23:59 | disposition home or self-care (01) ==
LOC: LAB.DROPOF 14:55
PROVIDERS: PCP Internal Medicine; Visit Provider Internal Medicine
DX: E78.5 Hyperlipidemia, unspecified (principal); F41.9 Anxiety disorder, unspecified; J30.9 Allergic rhinitis, unspecified; K58.9 Irritable bowel syndrome, unspecified; K91.89 Other postprocedural complications and disorders of digestive system; N13.8 Other obstructive and reflux uropathy; N40.1 Benign prostatic hyperplasia with lower urinary tract symptoms; R19.7 Diarrhea, unspecified; R97.20 Elevated prostate specific antigen [PSA]
CPT/HCPCS: 80053; 80061

== ENCOUNTER 2024-04-16 09:48 | Outpatient (CLI) | payer BC, OTHER, SELFPAY ==
[2024-04-16 12:18] LABS: Basophils # 0.1 K/mm3 (0-0.2); Basophils % 1.9 % (0.1-2.0); Eosinophils # 0.3 K/mm3 (0.0-0.4); Eosinophils % 6.9 % (0.1-12.0); Hematocrit 44.2 % (42.0-52.0); Hemoglobin 15.4 g/dL (14.1-18.0); Lymphocytes # 1.2 K/mm3 (0.7-4.5); Lymphocytes % 31.2 % (10-50); Mean Corpuscular HGB Conc 34.8 g/dL (31.8-35.4); Mean Corpuscular Hemoglobin 31.8 pg (27.0-31.2); Mean Corpuscular Volume 91.1 fl (80-94); Mean Platelet Volume 10.5 fl (7.4-10.4); Monocytes # 0.3 K/mm3 (0.1-1.0); Monocytes % 8.5 % (1.7-9.3); Neutrophils # 1.9 K/mm3 (1.8-7.8); Neutrophils % 51.2 % (37.0-80.0); Platelet Count 240 K/mm3 (142-424); Red Blood Count 4.85 M/mm3 (4.60-6.20); White Blood Count 3.8 K/mm3 (4.8-10.8)
[2024-04-16 12:39] LABS: Albumin Level 4.2 g/dl (3.5-5.0); Chloride 103 mmol/L (98-107); Sodium 138 mmol/L (136-145)
[2024-04-16 12:41] LABS: Blood Urea Nitrogen 21 mg/dl (9-20); Estimated Glomerular Filt Rate 68 ml/min (>60); GFR (African American) 82 ML/MIN (>60)
[2024-04-16 12:42] LABS: Alanine Aminotransferase 47 U/L (12-78); Albumin/Globulin Ratio 1.6 (1.1-1.8); Alkaline Phosphatase 63 U/L (38-126); Aspartate Amino Transferase 41 U/L (17-59); Bilirubin,Total 0.6 mg/dl (0.2-1.3); Calcium 9.2 mg/dl (8.4-10.2); Carbon Dioxide 27 mmol/L (22.0-30.0); Chol/HDL Ratio 6.6 (1-3.5); Cholesterol 179 mg/dl (140-200); Globulin 2.7 g/dL (1.3-3.2); Glucose 102 mg/dl (74-100); HDL Cholesterol 27 mg/dl (40-60); Total Protein,Serum 6.9 g/dl (6.3-8.2); Triglycerides 176 mg/dl (30-150); VLDL Cholesterol 35 mg/dL (0-40)
[2024-04-16 12:45] LABS: Anion Gap 12.4 mEq/L (5-15); Potassium 4.4 mmoL/L (3.5-5.1)
[2024-04-16 12:57] LABS: Direct LDL Cholesterol 117.06 mg/dL (100-129)
== END 2024-04-16 23:59 | disposition home or self-care (01) ==
LOC: LAB.DROPOF 04-17 09:48
PROVIDERS: PCP Internal Medicine; Visit Provider Internal Medicine
DX: K21.9 Gastro-esophageal reflux disease without esophagitis (principal); F41.9 Anxiety disorder, unspecified; K58.9 Irritable bowel syndrome, unspecified; E78.5 Hyperlipidemia, unspecified
CPT/HCPCS: 80053; 80061; 85025

== ENCOUNTER 2024-07-24 14:47 | Outpatient (CLI) | payer BC, OTHER, SELFPAY ==
--- OUTSIDE RECORDS SUMMARY | 2024-07-24 14:49 | XMS_ITS | Data Portability ---
Author Organization [facility]N TREMAYNE [facility] Address [address] [address] [place] [address] Care Team Providers Care Global Regulatory Lead Name Role Phone HEYDI MEDRANO Primary Care Provider Assessment Encounter Date Assessment Date Assessment LastModified by Organization Details LastModified Time 12/19/2023 12/19/2023 SURGERY DATE: 12/19/2023 PREOPERATIVE DIAGNOSIS: Elevated PSA. POSTOPERATIVE DIAGNOSIS: Elevated PSA. PROCEDURE: UroNav fusion biopsy of the prostate, transrectal. ANESTHESIA: Local MAC. SPECIMENS: Area of interest, mid gland on the left and standard sextant biopsies. SURGEON: Og Madrid MD BRIEF HISTORY: The patient with a rising PSA. He had MRI of the prostate revealing a grade 4 lesion as described. He presents today for fusion biopsy. OPERATIVE NOTE: After satisfactory sedation a probe was placed in the rectum. The ultrasound images were aligned with MRI study and fused. Four cores were taken from the area of interest which appeared to be all nice specimen. He had standard sextan biopsies; 3 medial and 3 laterally bilaterally, prostrate. Well tolerated. Patient was transferred to postop recovery in stable condition. He did have a standard prostrate block; 10 mL of 1% Xylocaine bilaterally at the base of the prostrate. [email or web address] Not available 12/20/2023 00:58:50 Plan of Treatment Reminders Order Date Submit Date Provider Last Modified By Organization Details Last Modified Time Details Appointments RECHECK 2024 01:15P M OG MADRID MD Not available Not available Not available Lab urinalysi s panel, auto [address] [facility], [address], [address], [place], [address], 05/21/2024 14:03:31 PSA, serum or plasma 2024 025 [email or web address] [facility], [address], [address], [place], [address], 05/21/2024 14:03:31 urinalysi s panel, auto [address] [facility], [address], [address], [place], [address], 04/16/2024 14:32:48 PSA, serum or plasma [address] [facility], [address], [address], [place], [address], 04/16/2024 14:32:48 urinalysi s panel, auto 2023 024 [email or web address] [facility], [address], [address], [place], [address], 10/14/2023 15:52:10 PSA, serum or plasma 2023 024 [facility], [address], [address], [place], [address], 10/14/2023 15:52:11 urinalysi s panel, auto 2023 024 [email or web address] [facility], [address], [address], [place], [address], 04/11/2023 14:17:34 PSA, serum or plasma 2023 024 [email or web address] [facility], [address], [address], [place], [address], 04/11/2023 14:17:36 Referral None recorded. Procedures None recorded. Surgeries None recorded. Imaging MRI, pelvis, w/wo contrast 2023 024 [facility], [address] [place], [address], 11/07/2023 11:51:42 Medication Orders cefuroxim e axetil 500 mg tablet 2024 025 [facility], [address] [place] [address] [address] [place] [address], [id number], 04/16/2024 16:36:36 nabumeton e 500 mg tablet 2024 025 [facility], [address] [place] [address] [address] [facility] [address] [place], [id number], 04/16/2024 16:36:37 Patient TargetsNo targets recorded. Patient Instructions Encounter Date Encounter Id Patient Instructions Last Modified By Organization Details Last Modified Time 10/10/2023 [id number] learning about healthy weight [email or web address] Not available 10/14/2023 15:52:08 Reason for Referral None Reported. Results Created Date Observation Date Name Description Value Unit Range Abnormal Flag Note LastModifiedBy Organization Detail LastModifiedTime 04/11/19 24 04/11/2023 PSA, serum or plasm a PSA 5.8 NG/mL 0.0 - 4.0 Not Available [facility] [address], [place], [address], 04/11/2023 13:57:01 04/11/19 24 04/11/2023 urina lysis panel , auto Unknown Analyte Clean Catch Not Available [facility] [address], [place], [address], 04/11/2023 13:36:45 04/11/19 24 04/11/2023 urina lysis panel , auto Unknown Analyte Yellow Not Available [facility] [address], [place], [address], 04/11/2023 13:36:45 04/11/19 24 04/11/2023 urina lysis panel , auto Unknown Analyte Clear Not Available [facility] [address], [place], [address], 04/11/2023 13:36:45 04/11/19 24 04/11/2023 urina lysis panel , auto Unknown Analyte 1.015 Not Available [facility] [address], [place], [address], 04/11/2023 13:36:45 04/11/19 24 04/11/2023 urina lysis panel , auto Unknown Analyte 1.003- 1.035 Not Available [facility] [address], [place], [address], 04/11/2023 13:36:45 04/11/19 24 04/11/2023 urina lysis panel , auto Unknown Analyte 6.5 Not Available [facility] [address], [place], [address], 04/11/2023 13:36:45 04/11/19 24 04/11/2023 urina lysis panel , auto Unknown Analyte 5.0-8. 0 Not Available [facility] [address], [place], [address], 04/11/2023 13:36:45 04/11/19 24 04/11/2023 urina lysis panel , auto Unknown Analyte Negati ve Not Available [facility] [address], [place], [address], 04/11/2023 13:36:45 04/11/19 24 04/11/2023 urina lysis panel , auto Unknown Analyte Negati ve Not Available [facility] [address], [place], [address], 04/11/2023 13:36:45 04/11/19 24 04/11/2023 urina lysis panel , auto Unknown Analyte Negati ve Not Available [facility] [address], [place], [address], 04/11/2023 13:36:45 04/11/19 24 04/11/2023 urina lysis panel , auto Unknown Analyte Negati ve Not Available [facility] [address], [place], [address], 04/11/2023 13:36:45 04/11/19 24 04/11/2023 urina lysis panel , auto Unknown Analyte Negati ve Not Available [facility] [address], [place], [address], 04/11/2023 13:36:45 04/11/19 24 04/11/2023 urina lysis panel , auto Unknown Analyte Negati ve Not Available [facility] [address], [place], [address], 04/11/2023 13:36:45 04/11/19 24 04/11/2023 urina lysis panel , auto Unknown Analyte Normal Not Available [facility] [address], [place], [address], 04/11/2023 13:36:45 04/11/19 24 04/11/2023 urina lysis panel , auto Unknown Analyte Normal Not Available [facility] [address], [place], [address], 04/11/2023 13:36:45 04/11/19 24 04/11/2023 urina lysis panel , auto Unknown Analyte Negati ve Not Available [facility] [address], [place], [address], 04/11/2023 13:36:45 04/11/19 24 04/11/2023 urina lysis panel , auto Unknown Analyte Negati ve Not Available [facility] [address], [place], [address], 04/11/2023 13:36:45 04/11/19 24 04/11/2023 urina lysis panel , auto Unknown Analyte Normal Not Available [facility] [address], [place], [address], 04/11/2023 13:36:45 04/11/19 24 04/11/2023 urina lysis panel , auto Unknown Analyte Normal 1 mg/dl Not Available [facility] [address], [place], [address], 04/11/2023 13:36:45 04/11/19 24 04/11/2023 urina lysis panel , auto Unknown Analyte Negati ve Not Available [facility] [address], [place], [address], 04/11/2023 13:36:45 04/11/19 24 04/11/2023 urina lysis panel , auto Unknown Analyte Negati ve Not Available [facility] [address], [place], [address], 04/11/2023 13:36:45 04/11/19 24 04/11/2023 urina lysis panel , auto Unknown Analyte Negati ve Not Available [facility] [address], [place], [address], 04/11/2023 13:36:45 04/11/19 24 04/11/2023 urina lysis panel , auto Unknown Analyte Negati ve Not Available [facility] [address], [place], [address], 04/11/2023 13:36:45 10/10/19 24 10/10/2023 PSA, serum or plasm a PSA 6.3 NG/mL 0.0 - 4.0 Not Available [facility] [address], [place], [address], 10/10/2023 13:49:28 10/10/19 24 10/10/2023 urina lysis panel , auto Unknown Analyte Clean Catch Not Available [facility] [address], [place], [address], 10/10/2023 13:32:05 10/10/19 24 10/10/2023 urina lysis panel , auto Unknown Analyte Yellow Not Available [facility] [address], [place], [address], 10/10/2023 13:32:05 10/10/19 24 10/10/2023 urina lysis panel , auto Unknown Analyte Clear Not Available [facility] [address], [place], [address], 10/10/2023 13:32:05 10/10/19 24 10/10/2023 urina lysis panel , auto Unknown Analyte 1.005 Not Available [facility] [address], [place], [address], 10/10/2023 13:32:05 10/10/19 24 10/10/2023 urina lysis panel , auto Unknown Analyte 1.003- 1.035 Not Available [facility] [address], [place], [address], 10/10/2023 13:32:05 10/10/19 24 10/10/2023 urina lysis panel , auto Unknown Analyte 6.0 Not Available [facility] [address], [place], [address], 10/10/2023 13:32:05 10/10/19 24 10/10/2023 urina lysis panel , auto Unknown Analyte 5.0-8. 0 Not Available [facility] [address], [place], [address], 10/10/2023 13:32:05 10/10/19 24 10/10/2023 urina lysis panel , auto Unknown Analyte Negati ve Not Available [facility] [address], [place], [address], 10/10/2023 13:32:05 10/10/19 24 10/10/2023 urina lysis panel , auto Unknown Analyte Negati ve Not Available [facility] [address], [place], [address], 10/10/2023 13:32:05 10/10/19 24 10/10/2023 urina lysis panel , auto Unknown Analyte Negati ve Not Available [facility] [address], [place], [address], 10/10/2023 13:32:05 10/10/19 24 10/10/2023 urina lysis panel , auto Unknown Analyte Negati ve Not Available [facility] [address], [place], [address], 10/10/2023 13:32:05 10/10/19 24 10/10/2023 urina lysis panel , auto Unknown Analyte Negati ve Not Available [facility] [address], [place], [address], 10/10/2023 13:32:05 10/10/19 24 10/10/2023 urina lysis panel , auto Unknown Analyte Negati ve Not Available [facility] [address], [place], [address], 10/10/2023 13:32:05 10/10/19 24 10/10/2023 urina lysis panel , auto Unknown Analyte Normal Not Available [facility] [address], [place], [address], 10/10/2023 13:32:05 10/10/19 24 10/10/2023 urina lysis panel , auto Unknown Analyte Normal Not Available [facility] [address], [place], [address], 10/10/2023 13:32:05 10/10/19 24 10/10/2023 urina lysis panel , auto Unknown Analyte Negati ve Not Available [facility] [address], [place], [address], 10/10/2023 13:32:05 10/10/19 24 10/10/2023 urina lysis panel , auto Unknown Analyte Negati ve Not Available [facility] [address], [place], [address], 10/10/2023 13:32:05 10/10/19 24 10/10/2023 urina lysis panel , auto Unknown Analyte Normal Not Available [facility] [address], [place], [address], 10/10/2023 13:32:05 10/10/19 24 10/10/2023 urina lysis panel , auto Unknown Analyte Normal 1 mg/dl Not Available [facility] [address], [place], [address], 10/10/2023 13:32:05 10/10/19 24 10/10/2023 urina lysis panel , auto Unknown Analyte Negati ve Not Available [facility] [address], [place], [address], 10/10/2023 13:32:05 10/10/19 24 10/10/2023 urina lysis panel , auto Unknown Analyte Negati ve Not Available [facility] [address], [place], [address], 10/10/2023 13:32:05 10/10/19 24 10/10/2023 urina lysis panel , auto Unknown Analyte Negati ve Not Available [facility] [address], [place], [address], 10/10/2023 13:32:05 10/10/19 24 10/10/2023 urina lysis panel , auto Unknown Analyte Negati ve Not Available [facility] [address] [facility] [address], [place], [address], 10/10/2023 13:32:05 12/19/19 24 12/19/2023 SURGI PAULINO surgical SEE BELOW normal Depar tment of Patho logy Surgi paulino Patho logy Repor t NAME: RAHUL LY PATH. :SS-2 [id number] Copy to: Diagn osis: A) Left prost ate biops y: Benig n prost ate tissu e. B) Right prost ate biops y: Benig n prost ate tissu e. C) Prost ate, area of inter est, biops y: Benig n prost ate tissu e. SOURC E OF SPECI MEN: PROST ATE , LEFT PROST ATE , RIGHT PROST ATE , AREA OF INTER EST CLINI PAULINO INFOR MATIO N: R97.2 0 PSA LEVEL - 6.3 ULTRA SOUND Gross Descr iptio n: A) Recei adolfo in forma lynette label ed with the patie nt's name and desig nated left prost ate biops y are six thin cores of banegas-w marcia tissu e measu ring 1.4, 1.5, 1.6, (2) 1.8 and 2.0 cm in lengt h. Entir cori submi tted in two casse ttes label ed A1-A2 . B) Recei adolfo in forma lynette label ed with the patie nt's name and desig nated righ t prost ate biops y are seven thin cores of banegas-w marcia tissu e measu ring 0.5, 1.1, 1.3, 1.4, (2) 1.5 and 1.6 cm in lengt h. Entir cori submi tted in two casse ttes label ed B1-B2 . C) Recei adolfo in forma lynette label ed with the patie nt's name and desig nated area of inter est are four thin cores of banegas-w marcia tissu e measu ring 1.4, (2) 1.7 and 1.9 cm in lengt h. Entir cori submi tted in one casse tte label ed C1. JAB 12/18 11:53 AM Micro scopi c Descr iptio n: A micro scopi c exami natio n has been perfo rmed and the resul t(s) are as noted above . CANDIDA VIDES MD Karishma d Out Date: 12/19 10:31 Page 1 of 1 Not Available [facility] [address] [facility], [place], [address], 12/20/2023 10:31:21 04/16/19 25 04/16/2024 PSA, serum or plasm a PSA 8.6 NG/mL 0.0 - 4.0 Not Available [facility] [place] [address], [place], [address], 04/16/2024 13:50:18 04/16/19 25 04/16/2024 urina lysis panel , auto Unknown Analyte Clean Catch Not Available [facility] [address], [place], [address], 04/16/2024 13:33:50 04/16/19 25 04/16/2024 urina lysis panel , auto Unknown Analyte Yellow Not Available [facility] [address], [place], [address], 04/16/2024 13:33:50 04/16/19 25 04/16/2024 urina lysis panel , auto Unknown Analyte Clear Not Available [facility] [address], [place], [address], 04/16/2024 13:33:50 04/16/19 25 04/16/2024 urina lysis panel , auto Unknown Analyte 1.015 Not Available [facility] [address], [place], [address], 04/16/2024 13:33:50 04/16/19 25 04/16/2024 urina lysis panel , auto Unknown Analyte 1.003- 1.035 Not Available [facility] [address], [place], [address], 04/16/2024 13:33:50 04/16/19 25 04/16/2024 urina lysis panel , auto Unknown Analyte 6.0 Not Available [facility] [address], [place], [address], 04/16/2024 13:33:50 04/16/19 25 04/16/2024 urina lysis panel , auto Unknown Analyte 5.0-8. 0 Not Available [facility] [address], [place], [address], 04/16/2024 13:33:50 04/16/19 25 04/16/2024 urina lysis panel , auto Unknown Analyte Negati ve Not Available [facility] [address], [place], [address], 04/16/2024 13:33:50 04/16/19 25 04/16/2024 urina lysis panel , auto Unknown Analyte Negati ve Not Available [facility] [address], [place], [address], 04/16/2024 13:33:50 04/16/19 25 04/16/2024 urina lysis panel , auto Unknown Analyte Negati ve Not Available [facility] [address], [place], [address], 04/16/2024 13:33:50 04/16/19 25 04/16/2024 urina lysis panel , auto Unknown Analyte Negati ve Not Available [facility] [address], [place], [address], 04/16/2024 13:33:50 04/16/19 25 04/16/2024 urina lysis panel , auto Unknown Analyte Negati ve Not Available [facility] [address], [place], [address], 04/16/2024 13:33:50 04/16/19 25 04/16/2024 urina lysis panel , auto Unknown Analyte Negati ve Not Available [facility] [address], [place], [address], 04/16/2024 13:33:50 04/16/19 25 04/16/2024 urina lysis panel , auto Unknown Analyte Normal Not Available [facility] [address], [place], [address], 04/16/2024 13:33:50 04/16/19 25 04/16/2024 urina lysis panel , auto Unknown Analyte Normal Not Available [facility] [address], [place], [address], 04/16/2024 13:33:50 04/16/19 25 04/16/2024 urina lysis panel , auto Unknown Analyte Negati ve Not Available [facility] [address], [place], [address], 04/16/2024 13:33:50 04/16/19 25 04/16/2024 urina lysis panel , auto Unknown Analyte Negati ve Not Available [facility] [address], [place], [address], 04/16/2024 13:33:50 04/16/19 25 04/16/2024 urina lysis panel , auto Unknown Analyte Normal Not Available [facility] [address], [place], [address], 04/16/2024 13:33:50 04/16/19 25 04/16/2024 urina lysis panel , auto Unknown Analyte Normal 1 mg/dl Not Available [facility] [address], [place], [address], 04/16/2024 13:33:50 04/16/19 25 04/16/2024 urina lysis panel , auto Unknown Analyte Negati ve Not Available [facility] [address], [place], [address], 04/16/2024 13:33:50 04/16/19 25 04/16/2024 urina lysis panel , auto Unknown Analyte Negati ve Not Available [facility] [address], [place], [address], 04/16/2024 13:33:50 04/16/19 25 04/16/2024 urina lysis panel , auto Unknown Analyte Negati ve Not Available [facility] [address], [place], [address], 04/16/2024 13:33:50 04/16/19 25 04/16/2024 urina lysis panel , auto Unknown Analyte Negati ve Not Available [facility] [address], [place], [address], 04/16/2024 13:33:50 05/21/19 25 05/21/2024 PSA, serum or plasm a PSA 9.1 NG/mL 0.0 - 4.0 Not Available [facility] [address], [place], [address], 05/21/2024 13:37:42 05/21/19 25 05/21/2024 urina lysis panel , auto Unknown Analyte Clean Catch Not Available [facility] [address], [place], [address], 05/21/2024 13:25:45 05/21/19 25 05/21/2024 urina lysis panel , auto Unknown Analyte Yellow Not Available [facility] [address], [place], [address], 05/21/2024 13:25:45 05/21/19 25 05/21/2024 urina lysis panel , auto Unknown Analyte Clear Not Available [facility] [address], [place], [address], 05/21/2024 13:25:45 05/21/19 25 05/21/2024 urina lysis panel , auto Unknown Analyte 1.005 Not Available [facility] [address], [place], [address], 05/21/2024 13:25:45 05/21/19 25 05/21/2024 urina lysis panel , auto Unknown Analyte 1.003- 1.035 Not Available [facility] [address], [place], [address], 05/21/2024 13:25:45 05/21/19 25 05/21/2024 urina lysis panel , auto Unknown Analyte 5.0 Not Available [facility] [address], [place], [address], 05/21/2024 13:25:45 05/21/19 25 05/21/2024 urina lysis panel , auto Unknown Analyte 5.0-8. 0 Not Available [facility] [address], [place], [address], 05/21/2024 13:25:45 05/21/19 25 05/21/2024 urina lysis panel , auto Unknown Analyte Negati ve Not Available [facility] [address], [place], [address], 05/21/2024 13:25:45 05/21/19 25 05/21/2024 urina lysis panel , auto Unknown Analyte Negati ve Not Available [facility] [address], [place], [address], 05/21/2024 13:25:45 05/21/19 25 05/21/2024 urina lysis panel , auto Unknown Analyte Negati ve Not Available [facility] [address], [place], [address], 05/21/2024 13:25:45 05/21/19 25 05/21/2024 urina lysis panel , auto Unknown Analyte Negati ve Not Available [facility] [address], [place], [address], 05/21/2024 13:25:45 05/21/19 25 05/21/2024 urina lysis panel , auto Unknown Analyte Negati ve Not Available [facility] [address], [place], [address], 05/21/2024 13:25:45 05/21/19 25 05/21/2024 urina lysis panel , auto Unknown Analyte Negati ve Not Available [facility] [address], [place], [address], 05/21/2024 13:25:45 05/21/19 25 05/21/2024 urina lysis panel , auto Unknown Analyte Normal Not Available [facility] [address], [place], [address], 05/21/2024 13:25:45 05/21/19 25 05/21/2024 urina lysis panel , auto Unknown Analyte Normal Not Available [facility] [address], [place], [address], 05/21/2024 13:25:45 05/21/19 25 05/21/2024 urina lysis panel , auto Unknown Analyte Negati ve Not Available [facility] [address], [place], [address], 05/21/2024 13:25:45 05/21/19 25 05/21/2024 urina lysis panel , auto Unknown Analyte Negati ve Not Available [facility] [address], [place], [address], 05/21/2024 13:25:45 05/21/19 25 05/21/2024 urina lysis panel , auto Unknown Analyte Normal Not Available [facility] [address], [place], [address], 05/21/2024 13:25:45 05/21/19 25 05/21/2024 urina lysis panel , auto Unknown Analyte Normal 1 mg/dl Not Available [facility] [address] [facility] [address], [place], [address], 05/21/2024 13:25:45 05/21/19 25 05/21/2024 urina lysis panel , auto Unknown Analyte Negati ve Not Available [facility] [address] [facility] [address], [place], [address], 05/21/2024 13:25:45 05/21/19 25 05/21/2024 urina lysis panel , auto Unknown Analyte Negati ve Not Available [facility] [address] [facility] [address], [place], [address], 05/21/2024 13:25:45 05/21/19 25 05/21/2024 urina lysis panel , auto Unknown Analyte Negati ve Not Available [facility] [address] [facility] [address], [place], [address], 05/21/2024 13:25:45 05/21/19 25 05/21/2024 urina lysis panel , auto Unknown Analyte Negati ve Not Available [facility] [address] [facility] [address], [place], [address], 05/21/2024 13:25:45 11/07/19 24 11/07/2023 MRI, pelvi s, w/wo contr ast [facility] [address] [place] [address] Patien t Name: RAHUL CHEW Fermin t : 1959 Patidong t Orderi ng Provid er: JAELYN MADRID EXAM DATE: 2023 EXAM: MR PELVIS ATTN PROSTA TE W/WO CONTRA ST [facility]IN[facility] AL INFORM ATION: Elevat ed PSA TECHNI QUE: A baseli ne serum creati nine with eGFR was obtain ed prior to inject ion of contra st medium due to the patien ts risk factor s for ALICIA. Calcul ated eGFR at time of exam was GFR 71 Tripla kevin T2, axial DWI, ADC map, axial T1 pre- and dynami c postco ntrast -enhan yehuda images as well as axial T1 fat-sa t imagin g was perfor med after inject ion of [address] (1 x 10 mL bottle of [facility] [address]26- 325-02 ) IV. The patien t did not requir e sedati on for this exam. COMPAR QUENTIN: None. FINDIN GS: PROSTA TE SIZE MEASUR EMENTS : Prosta te dimens ions = 4.3 x 2.9 x 3.8 cm (T x AP x CC). QUALIT Y: Good PERIPH ERAL ZONE: Overal l, periph eral zone is normal in size and backgr ound signal charac terist ics, No suspic ious focal lesion is seen. TRANSI TION ZONE: Multip le, well deline ated encaps ulated nodule s are seen consis tent with BPH. A suspic ious focal lesion is seen as decibe d below. PI-RAD S catego ry = 4/5 locate d in the medial right transi tional zone at mid gland level. Measur ement = 8 mm. Seen best in image 14 of series 8001, 7006, 7007, and image 134 of series 8000. It is positi ve on T2 WI, ADC, DWI and DCE images . Descri ption CAPSUL E AND NEIGHB ORING STRUCT URES: No capsul ar invasi on is identi fied. Neuro- vascul ar bundle s are normal bilate rally. Semina l vesicl es are normal . PELVIC LYMPH NODES: No pelvic lympha denopa thy. PELVIC BONES: No suspic ious osseou s lesion is seen. IMPRES EUGENE: 1. Change s of BPH 2. PI-RAD S 4/5, right transi tional zone. 3. Semina l vesicl es normal 4. No extrap rostat ic diseas e spread is sugges miguel angel Interp reted By: Rahul Holguin MD Electr onical ly Signed By: Rahul Holguin MD on 11/07/19 11:[address] Radiology [facility] [address] [place], [address], 11/27/2023 13:16:28 Result Notes None recorded. Problems Name Problem SNOMED Code Status Onset Date Resolution Date Notes Provider Name and Address Organization Details Recorded Time Prostate specific antigen above reference range 480957962 Active 2015 Provide r: Og Madrid ;Status : Active Not Available [facility] 06:32:30 Problem Notes None recorded. Procedures Surgical History Date Name Laterality Status Provider Name and Address Organization Details Recorded Time Cholecystectomy completed Jules Martinez [facility] 05/19/2016 14:33:49 Imaging Results Imaging Date Name Status LastModified by Organiz ation Details LastModified Time 11/07/2023 MRI, pelvis, w/wo contrast completed [address] [place], [address], 11/27/2023 13:16:28 Procedure Notes None recorded. Medical Equipment None Reported. Allergies No known drug allergies Medications Name Sig Start Date Stop Date Status Note LastModified by Organization Details LastModified Time amoxicill in 500 mg capsule TAKE TWO CAPSULES BY MOUTH EVERY TWELVE HOURS FOR 10 DAYS -- FINISH ALL MEDICINE -- 04/24 completed Not Available Not Available Not Available fluocinon corby 0.05 % topical gel 04/24 completed Not Available Not Available Not Available pseudoeph edrine-gu aifenesin ER 60 mg-600 mg tablet,ex tend release 12hr TAKE TWO TABLETS BY MOUTH TWICE DAILY NEEDED FOR nasal congesti on/drain age 0104/24 completed Not Available Not Available Not Available triamcino lone acetonide 0.1 % topical cream APPLY TOPICALL Y TO THE AFFECTED AREA(S) THREE TIMES DAILY NEEDED active Not Available Not Available No t Available citalopra m 20 mg tablet active Not Available Not Available Not Available lorazepam 0.5 mg tablet TAKE ONE TABLET BY MOUTH THREE TIMES DAILY NEEDED FOR nerves MAY CAUSE DROWSINE SS 04/24 completed Not Available Not Available Not Available meclizine 25 mg tablet TAKE ONE TABLET BY MOUTH THREE TIMES DAILY 04/24 completed Not Available Not Available Not Available benzonata te 100 mg capsule TAKE ONE CAPSULE BY MOUTH THREE TIMES DAILY NEEDED FOR COUGH 04/24 completed Not Available Not Available Not Available esomepraz ole magnesium 40 mg capsule,d elayed release active Not Available Not Available Not Available Cipro 500 mg tablet Take 1 tablet twice a day by oral route as directed for 3 days. 2023 active Not Available Not Available Not Avai lable pravastat in 20 mg tablet 04/24 completed Not Available Not Available Not Available cefuroxim e axetil 500 mg tablet Take 1 tablet every 12 hours by oral route. 2024 active Not Available Not Available Not Avai lable levofloxa alicia 500 mg tablet Take 1 tablet every 24 hours by oral route. 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 INSTRUCT IONS --TAKE WITH FOOD-- -- FINISH ALL MEDICINE -- 04/24 completed Not Available Not Available Not Available heather haynes-ps eudoephed rine-DM 2 mg-30 mg-10 mg/5 mL oral syrup 04/24 completed Not Available Not Available Not Available cefdinir 300 mg capsule TAKE ONE CAPSULE BY MOUTH EVERY TWELVE HOURS FOR 10 DAYS -- FINISH ALL MEDICINE -- 04/24 completed Not Available Not Available Not Available fluticaso ne propionat e 50 mcg/actua tion nasal spray,dimitri pension active Not Available Not Available Not Available colestipo l 1 gram tablet 04/24 completed Not Available Not Available Not Available amoxicill in 875 mg-potass ium clavulana te 125 mg tablet TAKE ONE TABLET BY MOUTH EVERY TWELVE HOURS FOR 10 DAYS -- FINISH ALL MEDICINE -- 04/24 completed Not Available Not Available Not Available nabumeton e 500 mg tablet Take 1 tablet twice a day by oral route. 2024 active Not Available Not Available Not Avai lable colestipo l 5 gram oral granules active Medicati on Descript ion: colestip ol; Route:or al; refills: 0 Not Available Not Available Not Available citalopra m 04/24 completed Medicati on Descript ion: citalopr am; Route:or al; refills: 0 Not Available Not Available Not Available pravastat in 04/24 completed Medicati on Descript ion: pravasta tin; Route:or al; refills: 0 Not Available Not Available Not Available Fluarix Quad 4969-5462 (PF) 60 mcg (15 mcg x 4)/0.5 mL IM syringe 04/24 completed Not Available Not Available Not Available BinaxNOW COVID-19 Ag Self Test kit TEST DIRECTED TODAY 04/24 completed Not Available Not Available Not Available Lagevrio 200 mg capsule (EUA) TAKE 4 CAPSULES BY MOUTH EVERY 12 HOURS FOR 5 DAYS 04/24 completed Not Available Not Available Not Available Vitals Date Recorded Body height Body mass index (BMI) Body weight Provider Name and Address Organization Details Last Updated DateTime 04/11/2023 175.26 cm 36.2 kg/m2 482822.13 g Agus Mario [facility] 04/11/2023 14:07:27 Date Recorded Body height Body mass index (BMI) Body weight Provider Name and Address Organization Details Last Updated DateTime 10/10/2023 175.26 cm 33.1 kg/m2 161167.69 g Nanci Mitchell [facility] 10/10/2023 13:29:15 Date Recorded Body height Body mass index (BMI) Body weight Provider Name and Address Organization Details Last Updated DateTime 04/16/2024 175.26 cm 34 kg/m2 321174.25 g Marisol Medrano [facility] 04/16/2024 13:30:40 Date Recorded Body height Body mass index (BMI) Body weight Provider Name and Address Organization Details Last Updated DateTime 05/21/2024 175.26 cm 34 kg/m2 364038.25 g Marisol Medrano [facility] 05/21/2024 13:23:26 Social History Question Answer Notes LastModified by Organizat ion Details LastModified Time Tobacco Smoking Status [facility] 14:33:36 What Is Your Level Of Alcohol Consumption? Occasional Information not available 05/19/2016 Marital Status Informati on not available 05/19/2016 What Was The Date Of Your Most Recent Tobacco Screening? 10/10/2023 [email or web address] Information not available 10/10/2023 Sex: Male Functional Status None recorded. Mental Status None recorded. Family History Relationship Description Onset Age of this Age Resolved Age Notes LastModified by Organization Details LastModified Time Mother Diabetes mellitus [email or web address] Not available 05/03 14:33:13 Maternal Uncle Family history of malignant neoplasm [email or web address] Not available 05/03 14:33:19 Father Carcinoma of prostate [email or web address] Not available 05/03 14:33:30 Medical History No medical history recorded. Past Encounters Encounter ID Performer Location Encounter Start Date Encounter Closed Date Diagnosis/Indication Diagnosis SNOMED-CT Code Diagnosis ICD10 Code Diagnosis Note [id number] MD [facility]IKI [facility] [address] [phone] 05/19/2016 13:55:56 05/19/2016 16:38:23 Prostate specific antigen above reference range 637858766 R97.20 discussion 20 minutes Prostate s pecific antigen outside reference range 322460134 R97.20 [id number] OG MADRID MD SURGERY SCHEDULE [address] [place] [address] 06/02/2016 06:10:32 06/02/2016 06:12:59 [id number] MD [facility]IKI [facility] [address],[place] [id number] 09/01/2016 13:21:40 09/04/2016 09:25:38 Prostate specific antigen above reference range 318520302 R97.20 Follow-up 6 months with PSA Family his tory of malignant neoplasm of prostate 726134244 Z80.42 [id number] MD NIKI [facility]UR[facility] [address] [address] 04/24/2022 14:08:04 04/24/2022 15:12:02 Prostate specific antigen above reference range 233969690 R97.20 Follow-up 6 months with PSA [id number] MD NIKI MUR[facility] [address] [place], [place] [id number] 10/25/2022 13:37:27 10/25/2022 14:59:12 Prostate specific antigen above reference range 137138516 R97.20 Follow-up 6 months with PSA Benign pro static hyperplasia 367504502 N40.0 [id number] OG AMDRID MD [facility] [address],[place] [address] 04/11/2023 13:16:45 04/11/2023 14:14:51 Prostate specific antigen above reference range 808636858 R97.20 Follow-up 6 months with PSA [id number] OG MADRID MD [facility] [address],[place] [address] 10/10/2023 13:06:34 10/10/2023 14:17:22 Prostate specific antigen above reference range 119696966 R97.20 Plan as above [id number] OG MADRID MD SURGERY SCHEDULE [address] [place] [id number] 12/19/2023 06:41:16 12/19/2023 06:42:01 [id number] OG MADRID MD [facility] [address] [id number] 04/16/2024 13:14:21 04/16/2024 14:33:16 Prostate specific antigen above reference range 532343478 R97.20 Follow-up 1 month with PSA Chronic prostatitis 1990 5009 N41.1 Primary er ectile dysfunction 629141673 N52.9 To discuss injection therapy in the future [id number] OG MADRID MD [facility] [address] [address] 05/21/2024 12:48:53 05/21/2024 14:01:02 Prostate specific antigen above reference range 855038593 R97.20 Follow-up 3 month with PSA Primary er ectile dysfunction 787105229 N52.9 As above to be readdresse d at follow-up we have sent a prescripti on to [facility] pharmacy Health Concerns Section Related Observation LastModified by Organization Detai ls LastModified Time None Recorded Concern Status LastModified by Organization Details LastModified Time None Recorded Advance Directives Directive None Recorded Payers Encounter Date Sequence Insurance Name Policy Number Policy Blair Covered Member ID Blair Member ID Guarantor Name 04/11/2023 1 [facility] [id number] Rahul Lackey Anna [id number] 1 Rahul Lackey Anna 10/10/2023 1 [facility] [id number] Rahul Lackey Anna [id number] Rahul W Anna 12/19/2023 1 [facility] [id number] Rahul Lackey Anna [id number] Rahul W Anna 04/16/2024 1 [place] [id number] Rahul Lackey Anna [id number] Rahul Lackey Anna 05/21/2024 1 [place] [id number] Rahul Lackey Anna [id number] Rahul Lackey Anna Notes Date Note Type Note Provider Name and Address Organization Details Recorded Time 04/11/2023 text/html Patient is here in follow-up of mildly elevated and fluctuating PSA. He was last seen in September. PSA at that time was 4.7. April of last year his PSA was 5 and then back down to 2.3. PSA today is 5.8. He has no significant obstructive symptoms. His urine specimen is unremarkable. OG MADRID MD [address] [place] [address], [phone], [facility] 04/11/2023 14:26:31 10/10/2023 text/html Patient is scheduled 6-month follow-up regarding his elevated and fluctuating PSA. PSA has bounced between 5 and then back down to 2. PSA at last visit was 5.8 and today is 6.3. He has had no change of urination symptoms. Previous exams have been unremarkable and mildly enlarged. Due to the persistently elevated and increasing PSA I suggest we arrange for an MRI of the prostate. He understands. OG MADRID MD [address] [place] [address], [phone], [facility] 10/14/2023 15:52:39 04/16/2024 text/html Patient is here with negative needle biopsy of the prostate directed by MRI in December. PSA at that time was 6.3. PSA today was 8.6. He has had generally rising PSA over the years. He did have 1 fluctuation back in 2016. Has had no change of urination and I suggest with first treating for chronic prostatitis and see him back in 1 month to repeat PSA. He also has had failure of treatment regarding erectile dysfunction with sildenafil. Even at 100 mg he has difficulty achieving and maintaining erection and has considerable side effects. We discussed injection therapy which he would like to try once his PSA has been addressed. OG MADRID MD [facility] [place], [address], [facility] 04/16/2024 14:33:28 05/21/2024 text/html Patient is here in follow-up of elevated PSA. In December he had a UroNav fusion biopsy. All of his biopsies were benign. PSA at that time was 6.3. In April was seen and repeat PSA was 8.6. I treated him for potential chronic prostatitis with cefuroxime and nabumetone. PSA today is 9.1. We discussed this change in after consideration we will plan to see him back in 3 months with repeat PSA. If it continues to rise we will arrange for other additional biopsies. He also has erectile dysfunction which is failed oral therapy. We discussed injection therapy as well as intraurethral compounding gel. He would first like to try the gel. OG MADRID MD [facility], [address], [facility] 05/21/2024 14:03:54
--- NOTE | 2024-07-24 14:50 | XR_ITS ---
FINAL REPORT TECHNIQUE: 5 views CLINICAL HISTORY: Low back pain and stiffness radiates down both legs COMPARISON: None FINDINGS: No acute fracture or malalignment is identified. There is moderate disc space narrowing at the L5-S1 level. Moderate facet sclerosis is present in the lower lumbar spine. A few small osteophytes are noted at the L3-4, L4-5, and L5-S1 levels. IMPRESSION: Moderate disc space narrowing at the L5-S1 level, without acute bony abnormality identified. Reviewed, Interpreted and Dictated by Samuel Lou MD Transcribed by Arlyn Robb Authenticated and . [facility]
== END 2024-07-24 23:59 | disposition home or self-care (01) ==
LOC: RAD 14:48
PROVIDERS: PCP Internal Medicine; Visit Provider Internal Medicine
DX: M51.360 Other intervertebral disc degeneration, lumbar region with discogenic back pain only (principal)
CPT/HCPCS: 72110

== ENCOUNTER 2024-08-27 07:45 | Outpatient (RCR) | payer BC, OTHER, SELFPAY ==
--- NOTE | 2024-08-27 08:43 | HMH.PTOPEV ---
PT Outpatient Evaluation Rehab PT Outpatient Evaluation Start: 08/27/24 07:50 Freq: Status: Active Protocol: Document 08/27/24 07:50 AIDA (Rec: 08/27/24 08:43 AIDA [id number]) E-signed By Ethan Sanchez, PT Outpatient Therapy Subjective History Subjective History Pt is a 64 yom who is referred to [facility] outpatient PT with complaints of chronic low back and bilateral hip pain. Pt reports that his pain has been ongoing for years but has worsened in the past 6 months. Pt reports that his pain is worsened when he is sitting or standing still and usually improves when he starts moving around. Pt reports that his job requires him to work in a bent over position and when he stays in that position for long periods, it worsens. Pt denies falls. Pt denies Numbness and Tingling. 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 Chief Complaint Pain,Stiff,Catches/Locks Symptom Type Ache,Sharp Symptoms Relieved By OTC Meds,Activity Symptoms Aggravated By Sitting,Standing,Bending/ Stooping Prior Functional Limitations None Current Functional Limitations Driving,Standing,Sitting, Squatting Symptom Description Intermittent,Activity Dependent Level of pain today (0-10) 3 Pain scale - at its best (0-10) 0 Pain scale - at its worst (0-10) 10 Lumbopelvic Eval Posture Thoracic Spine Posture Standing Position Neutral Lumbar Spine Posture Standing Position Neutral Assistive device Assistive Devices None / NA Gait Observation General Gait Pattern Observation Wide Based Gait Palapation tenderness bilateral lumbar spinal tenderness Yes: TTP 2/4 to L4-S1 paraspinal tenderness Yes: TTP 2/4 to L4-S1 Lumbar/Sacral Palpation Findings Tenderness Accessory Movement L4 bilateral L5 bilateral S1 bilateral Range of Motion Lumbar Spine Active Flexion Range of 100% Motion (degrees) Lumbar Spine Active Extension Range of 20% Motion (degrees) Left Lumbar Spine Lateral Flexion Active 50% Range of Motion (degrees) Right Lumbar Spine Lateral Flexion 50% Active Range of Motion (degrees) Lumbar Spine ROM Limitations Soft Tissue Tightness Manual Muscle Test Bilateral Knee Extension Strength Grade 4 Good Knee Flexion Strength Grade 4 Good Hip Flexion Strength Grade 3+ Fair+ Hip Abduction Strength Grade 3 Fair Hip Adduction Strength Grade 3 Fair Hip Extension Strength Grade 3+ Fair+ DTR Rt Patellar 1+ Lt Patellar 1+ Rt Gastroc/Soleus 1+ Lt Gastroc/Soleus 1+ Altered Sensation Bilateral Comment Intact to LT globally Special Tests Lumbar Spine Screen Positive Hip Scouring (Quadrant) Test Positive Left,Positive Right Hip Zaki (LEWIS) Test Positive Left,Positive Right Sciatic Nerve Tension Test Negative Left,Negative Right Reverse Sciatic Nerve Tension Test Negative Left,Negative Right Crossed Straight Leg Raise Test Negative Left,Negative Right Oswestry Index Section 1 Pain Intensity The pain comes and goes and is moderate Section 2 Personal Care (Washing,Dresing) change my way of washing or dressing in order to avoid pain Section 3 Lifting I can lift heavy weights, but it gives me extra pain Section 4 Walking I have some pain when walking but it does not increase with distance Section 5 Sitting Pain prevents me from sitting for more than one hour Section 6 Standing I cannot stand more than 1 hour without increasing pain Section 7 Sleeping I get pain in bed, but it does not prevent me from sleeping well Section 8 Social Life My social life is normal but increases the degree of pain Section 9 Traveling I get extra pain while traveling, but it does not compel me to seek al Section 10 Changing Degreee of Pain My pain is neither getting better or worse Score and Risk Level Oswestry Sc 15 Oswestry Risk Level Moderate Disability Miscellaneous Dx PT Eval Objective Objective FADIR: + Outpatient Therapy Assessment Impairments Problems/Impairmments Palpation Tenderness,Impaired Range of Motion,Impaired Strength,Impaired Gait Pattern ,Impaired Standing,Impaired Sitting,Impaired Work Activities,Subjective C/O Pain Prognosis Rehab Potential Good Clinical Impression Consistent with Diagnosis Yes Consistent with Low back pain (M54.50) Additional details: Pt presents with low back pain with mobility deficits. Pt also presents with mobility deficits into both hips, along with global hip weakness. Skilled PT remains indicated at this time. Short Term Goals Number of Weeks 4 Decreased Palpation Tenderness Yes: 1/ to TTP assessment above Increase Range of Motion Yes: Improve lumbar extension to 50% WNL Increase Strength Yes: 4/5 to B hips Improve Oswestry Score Yes: <10 Decrease Subjective C/O Pain Yes: 5/10 with above assessment Patient to be Ind w/ HEP Yes Retirement Goals Number of Weeks 8 Decreased Palpation Tenderness Yes: 0/4 to TTP assessment above Increase Range of Motion Yes: 75% WNL Lumbar extension Increase Strength Yes: 5/5 to B hips Improve Gait Pattern without Assistive Yes: Normalized Gait mechanics Device Improve Ability to Bend Yes: Able to bend over and pharmacy picking tech items in yard without increasing pain Improve Tolerance to Work Activities Yes: Normal daily job duties without increasing pain Improve Oswestry Score Yes: <5 Decrease Subjective C/O Pain Yes: 2-3/10 with above assessment Patient to be Ind w/ Advanced HEP Yes Outpatient Therapy Plan of Care Treatment Plan May Include Therapeutic Exercise Including Home Yes Exercise Program Manual Therapy Techniques Yes Neuromuscular Re-education Yes Therapeutic Activities to Return to Yes Previous Functional/Work Level Gait Training Yes ADL/Self Care Education Yes Mechanical Traction Yes Dry Needling Yes Thermal Modalities Yes Electrical Stimulation Yes Iontophoresis Yes Manual Lymphatic Drainage Yes Eval/Re-Eval Yes Frequency Times per week 2 Duration Number of Weeks 8 Addendums This patient is a candidate for social No or vocational rehab? Patient/Guardian verbally acknowledges Yes understanding of treatment program and consents to further treatment? Patient/Guardian verbally acknowledges Yes understanding of diagnosis, prognosis and goals for treatment? Eval Complexity PT Charges 34207 - Moderate Complexity Shoulder/Elbow Eval Shoulder Objective Measurements Elbow Objective Measurements PHYSICIAN CERTIFICATION: I certify the specified therapy services for Lincoln Castillo are required, authorized, and reviewed every 30 days.
== END 2024-08-27 23:59 | disposition home or self-care (01) ==
LOC: PT 07:45
PROVIDERS: PCP Internal Medicine; Visit Provider Internal Medicine
DX: M25.552 Pain in left hip (principal); M25.551 Pain in right hip; M54.50 Low back pain, unspecified; G89.29 Other chronic pain
CPT/HCPCS: 97163

== ENCOUNTER 2024-09-16 17:00 | Outpatient (RCR) | payer BC, OTHER, SELFPAY | END 2024-09-16 23:59 | disposition home or self-care (01) | LOC: PT 17:00 | PROVIDERS: PCP Internal Medicine; Visit Provider Internal Medicine | DX: M54.50 Low back pain, unspecified (principal) | CPT/HCPCS: 97110 ==

== ENCOUNTER 2024-10-14 15:08 | Outpatient (CLI) | payer BC, OTHER, SELFPAY ==
--- OUTSIDE RECORDS SUMMARY | 2024-10-14 15:10 | XMS_ITS | Referral Summary ---
Author Organization [employer] ([place], [place], [place], [place]) Address [address] [place] [address] Care Team Providers Care Manufacturing Supervisor Name Role Phone Unavailable Primary Care Provider Unavailabl e Social History Tobacco Use Types Packs/Day Years Used Date Smoking Tobacco: Never Assessed Sex and Gender Information Value Date Recorded Sex Assigned at Male 09/27/2021 8:54 PM CDT Legal Sex Male 8:54 PM CDT Gender Identity Male 09/27/2021 8:54 PM CDT Sexual Orientation Not on file Plan of Treatment Not on file
--- OUTSIDE RECORDS SUMMARY | 2024-10-14 15:10 | XMS_ITS | Clinical Summary ---
Author Organization [employer] ([place], [place], [place], [place]) Address [address] [place] [address] Care Team Providers Care Employee Adviser Name Role Phone Unavailable Primary Care Provider [...]
[2024-10-14 15:32] LABS: Alanine Aminotransferase 35 U/L (12-78); Albumin Level 4.3 g/dl (3.5-5.0); Albumin/Globulin Ratio 1.5 (1.1-1.8); Alkaline Phosphatase 62 U/L (38-126); Anion Gap 15.4 mEq/L (5-15); Aspartate Amino Transferase 35 U/L (17-59); Bilirubin,Total 0.8 mg/dl (0.2-1.3); Blood Urea Nitrogen 13 mg/dl (9-20); Calcium 9.2 mg/dl (8.4-10.2); Carbon Dioxide 27 mmol/L (22.0-30.0); Chloride 99 mmol/L (98-107); Cholesterol 174 mg/dl (140-200); Creatinine,Serum 0.80 mg/dl (0.66-1.25); Estimated Glomerular Filt Rate 98 ml/min (>60); GFR (African American) 119 ML/MIN (>60); Globulin 2.8 g/dL (1.3-3.2); Glucose 100 mg/dl (74-100); HDL Cholesterol 28 mg/dl (40-60); Potassium 4.4 mmoL/L (3.5-5.1); Sodium 137 mmol/L (136-145); Total Protein,Serum 7.1 g/dl (6.3-8.2); Triglycerides 218 mg/dl (30-150)
[2024-10-14 16:00] LABS: Prostate Specific Ag, Diagnost 8.12 ng/ml (0.0-4.0)
== END 2024-10-14 23:59 | disposition home or self-care (01) ==
LOC: LAB.DROPOF 15:08
PROVIDERS: PCP Internal Medicine; Visit Provider Internal Medicine
DX: K21.9 Gastro-esophageal reflux disease without esophagitis (principal); E78.5 Hyperlipidemia, unspecified; K91.89 Other postprocedural complications and disorders of digestive system; R19.7 Diarrhea, unspecified; R97.20 Elevated prostate specific antigen [PSA]
CPT/HCPCS: 80053; 80061; 84153

== ENCOUNTER 2024-11-26 06:33 | Day surgery (SDC) | payer BC, OTHER, SELFPAY ==
[2024-11-21 11:35] VITALS: BMI 34.7
--- NOTE | 2024-11-25 16:52 | P.HP_ITS ---
History of Present Illness *Admission Date: 11/26/24 *History of present illness: Mr. Castillo is a 64-year-old gentleman who is here for screening colonoscopy. His last colonoscopy was over 10 years ago (Geraldo Cowart MD) and he does state that he thinks 1 polyp was removed at that time. The examination is deemed medically necessary for screening colonoscopy. The patient has been seen, interviewed and examined prior to the procedure by both myself and the anesthesia provider. [facility] Disclaimer: The information contained in this section may have been updated after the patient was seen, as this information can be updated by other users. Medical History Sinusitis Anxiety Surgical History History of cholecystectomy Family History Mother Family history of diabetes mellitus type II Dementia Father Family history of diabetes mellitus type II Social History Smoking Status: Former smoker second hand exposure: No alcohol intake: current alcohol intake frequency: holidays/special occasions only substance use type: denies use current occupational status: employed Travel in the last 8 weeks?: None household members: spouse housing: house Have you lived/traveled outside US in past 30 days?: No Contact w/someone who lives/traveled outside US past 30 days?: No Exposure to someone with infectious disease in past 14 days?: No Do you have a fever (greater than 100.4 F or 38 C)?: No Have you tested positive for COVID-19?: No Exposed to someone with COVID-19 in past 14 days?: No Do you have a sore throat?: No Do you have a cough?: No Do you have any weakness?: No Are you experiencing any nausea/vomitting?: No Do you have any diarrhea?: No Are you experiencing any unusual bleeding?: No Do you have any muscle aches/pain?: No Do you have any abdominal pain?: No Are you experiencing loss of taste or smell?: No Other Medical History Have you received the Flu Vaccine for this season: No Have you received the Pneumonia Vaccine: No Review of Systems Review of Systems Review of systems (narrative): Negative *Cardiovascular Comments: Negative *Gastrointestinal Comments: Negative *Genitourinary Comments: Negative *Musculoskeletal Comments: Negative *Neurologic Comments: Negative Meds Home Medications and Allergies Home Medications ?Medication ?Instructions ?Recorded ?Confirmed ?Type ibuprofen 600 mg tablet 600 mg PO QID PRN fever or p ain 07/24/24 11/21/24 Rx #120 tabs citalopram 20 mg tablet See Rx Instructions .Route 0 09/05/24 11/21/24 Rx .COMPLEX #90 tabs fluticasone propionate 50 1 spray intranasal BID #16 g drew 10/27/24 11/21/24 Rx mcg/actuation nasal spray,suspension sodium sul 1.479 gram-potas ch See Rx Instructions PO PER PKG DIR 11/12/24 Rx 0.188 gram-magnes sul 0.225 gram colonscopy #24 tabs tablet (Sutab) azelastine 137 mcg (0.1 %) nasal 1 spray intranasal BI D 11/21/24 11/21/24 History spray colestipol 1 gram tablet (Colestid) See Rx Instruction s .Route .COMPLEX 11/21/24 11/21/24 History esomeprazole magnesium 40 mg See Rx Instructions .Rout e .COMPLEX 11/21/24 11/21/24 History capsule,delayed release (Nexium) New Prescriptions to Start Prescriptions: Allergies Allergy/AdvReac Type Severity Reaction Status Date / Time No Known Allergies Allergy Verified 11/21/24 10:07 Exam *Routine HEENT Exam Head: Present normocephalic Eye: Present EOMI and PERRL ENT: Present mucous membranes moist *Routine Neck Exam Neck: Present supple *Routine Respiratory Exam Respiratory: Present CTA bilaterally *Routine Cardiovascular Exam Cardiovascular: Present RRR *Routine Abdominal Exam Abdominal: Present soft and normoactive bowel sounds; Absent tenderness *Routine Rectal Exam Rectal:: deferred *Routine Genitalia Exam Genitalia:: deferred *Routine Extremities Exam Extremities: Absent cyanosis, clubbing or edema *Routine Skin Exam Skin: Present warm; Absent rash *Routine Neurological Exam Neurological: Present alert and oriented X3 Assessment and Plan *Assessment and plan (1) Screening for colon cancer: Status: Acute Category: Medical Code(s): Z12.11 - Encounter for screening for malignant neoplasm of colon Plan A/P: 1. Screening for colon cancer is the preprocedural diagnosis. The patient will be anesthetized/sedated using MAC sedation. The patient has been seen and examined. Cardiac and lung assessment prior to the examination is stable. Proceed with planned screening colonoscopy.
[2024-11-26 07:11] VITALS: BP 123/62; PULSE 73; RESP 16; TEMP 36.3; O2SAT 96; BMI 34.7
[2024-11-26] MEDS: LACTATED RINGERS 1000ML 1,000 ML 50 ML IV (07:22)
--- NOTE | 2024-11-26 07:29 | P.PNANES_ITS ---
[facility] Disclaimer: The information contained in this section may have been updated after the patient was seen, as this information can be updated by other users. Medical History Sinusitis Anxiety Surgical History History of cholecystectomy Family History Mother Family history of diabetes mellitus type II Dementia Father Family history of diabetes mellitus type II Social History Smoking Status: Former smoker second hand exposure: No alcohol intake: current alcohol intake frequency: holidays/special occasions only substance use type: denies use current occupational status: employed Travel in the last 8 weeks?: None household members: spouse housing: house Have you lived/traveled outside US in past 30 days?: No Contact w/someone who lives/traveled outside US past 30 days?: No Exposure to someone with infectious disease in past 14 days?: No Do you have a fever (greater than 100.4 F or 38 C)?: No Have you tested positive for COVID-19?: No Exposed to someone with COVID-19 in past 14 days?: No Do you have a sore throat?: No Do you have a cough?: No Do you have any weakness?: No Are you experiencing any nausea/vomitting?: No Do you have any diarrhea?: No Are you experiencing any unusual bleeding?: No Do you have any muscle aches/pain?: No Do you have any abdominal pain?: No Are you experiencing loss of taste or smell?: No [facility] Anesthesia Checklist Patient Identification Patient Identification: Arm Band and Verbal (Name & ) Structural Data Admitted From: Home Planned Operative Procedure/s: Colonscopy Consent for Planned Operative Procedure(s) Verified: Yes Verified Documents: Surgical Consent and History and Physical NPO Status Verified Time NPO: 00:00 Additional verifications Anesthesia Reactions: No Previous Colonoscopy: Yes Airway Assessment Mallampati Score:: Class II Dentition: Good Dentition Neurological Assessment Level of Consciousness: Awake, Alert and Appropriate Hx Seizures: No Numbness or tingling in extremities: No Anesthesia Plan Anesthesia Risk discussed: Yes Anesthesia Plan: Verified ASA Class: II Anesthesia Type: MAC
--- NOTE | 2024-11-26 07:58 | P.PCN_ITS ---
[facility] Procedure Note Date: 11/26/24 Time: 08:15 Procedure Note:: Colonoscopy Procedure Report: Colonoscopy with cold snare polypectomy Endoscopist: Josiah Acosta II, MD Referring physician: Yoni Norman MD Date of Procedure: November 26, 2024 Equipment: Olympus [id number] adult colonoscope Sedation: MAC sedation Indication: Mr. Castillo is a 64-year-old gentleman who is here for screening colonoscopy. His last colonoscopy was just over 10 years ago (Geraldo Cowart MD) and he does state that he thinks 1 polyp was removed at that time. The patient reports no abdominal pain, weight loss, change in his bowel habits or rectal bleeding. He reports no family history of colon cancer. Procedure: Prior to the procedure, a history and physical exam was performed, and patient's medications and allergies were reviewed. The risks, benefits and alternatives of the sedation and procedure were discussed with the patient. All questions were answered and informed consent was obtained. The patient was brought to the procedure room. Patient identification and proposed procedure were verified by the physician and the nurse. The patient was placed in a left lateral decubitus position and the scope was passed under direct vision. Throughout the procedure, the patient's blood pressure, pulse, and oxygen saturations were monitored continuously. The colonoscopy was accomplished without difficulty. The patient tolerated the procedure well. Findings: On digital rectal examination there was normal rectal tone. There were no external hemorrhoids. The prostate was 2+, mildly firm (more so the left lobe) without nodules. The colonoscope was introduced through the anal canal to the rectum and advanced to the cecum. The ileocecal valve and appendiceal orifice were identified. The scope was advanced a short distance into the ileum which appeared grossly normal. The scope was then withdrawn into the colon. There were 3 colon polyps (ascending x 2 (3 and 4 mm) and sigmoid x 1 (5 mm)). These were all removed via cold snare polypectomy. The cecum, ascending and transverse colon and mucosa were grossly normal. There were scattered diverticuli throughout the descending and sigmoid colon (LEFT colon). The rectum itself was normal. Upon retroflexion within the rectum there were grade 1-2 internal hemorrhoids. The preparation was excellent throughout with Oxford Preparation Score of 9. The cecal time was 12 minutes. Impression: 1. Diminutive colonic polyps x 3 2. Left-sided diverticulosis 3. Grade 1-2 internal hemorrhoids Plan: I will follow-up the polyp histology and recommend repeat surveillance colonoscopy again in 5 years if the polyps are adenomatous. I would encourage bulking psyllium fiber supplementation on a maintenance basis.
[2024-11-26 08:17] VITALS: BP 99/61; PULSE 71; RESP 18; TEMP 36.2; O2SAT 92
[2024-11-26 08:27] VITALS: BP 117/81; PULSE 68; RESP 18; TEMP 36.2; O2SAT 96
[2024-11-26 08:37] VITALS: BP 121/68; PULSE 75; RESP 16; TEMP 36.2; O2SAT 94
[2024-11-26 08:47] VITALS: BP 125/84; PULSE 71; RESP 18; TEMP 36.2; O2SAT 96
== END 2024-11-26 08:47 | disposition home or self-care (01) ==
PROVIDERS: PCP Internal Medicine; Visit Provider Internal Medicine Gastroenterology
PROC: 0DJD8ZZ Inspection of Lower Intestinal Tract, Via Natural or Artificial Opening Endoscopic (ICD-10-PCS; CPT 45378; principal; 2024-11-26 08:00)
DX: Z12.11 Encounter for screening for malignant neoplasm of colon (principal); D12.2 Benign neoplasm of ascending colon; D12.5 Benign neoplasm of sigmoid colon; K57.30 Diverticulosis of large intestine without perforation or abscess without bleeding; K64.0 First degree hemorrhoids; K64.1 Second degree hemorrhoids; F41.9 Anxiety disorder, unspecified; Z90.49 Acquired absence of other specified parts of digestive tract; Z87.891 Personal history of nicotine dependence; Z79.899 Other long term (current) drug therapy; Z79.51 Long term (current) use of inhaled steroids
CPT/HCPCS: 45385; J2003; J2704; J7120

== ENCOUNTER 2025-01-22 14:44 | Outpatient (CLI) | payer BC, OTHER, SELFPAY ==
--- NOTE | 2025-01-22 14:46 | XR_ITS ---
FINAL REPORT CLINICAL HISTORY: Right hip pain with motion FINDINGS: Right hip THREE VIEW FINDINGS: Three views show no evidence of an acute, displaced fracture or dislocation of the visualized bony architecture. The joint spaces appear normal. IMPRESSION: Unremarkable exam. Authenticated and ERN
--- NOTE | 2025-01-22 14:46 | XR_ITS ---
FINAL REPORT CLINICAL HISTORY: Left hip pain with motion FINDINGS: Left hip THREE VIEW FINDINGS: Three views show no evidence of an acute, displaced fracture or dislocation of the visualized bony architecture. The joint spaces appear normal. IMPRESSION: Unremarkable exam. Authenticated and ERN
--- OUTSIDE RECORDS SUMMARY | 2025-01-22 15:07 | XMS_ITS | Clinical Summary ---
Author Organization [employer] ([place], [place], [place], [place]) Address [address] [place] [address] Care Team Providers Care Parts Manager Name Role Phone Unavailable Primary Care Provider [...]
--- OUTSIDE RECORDS SUMMARY | 2025-01-22 15:07 | XMS_ITS | Referral Summary ---
Author Organization [employer] ([place], [place], [place], [place]) Address [address] [place] [address] Care Team Providers Care Lathmaker Name Role Phone Unavailable Primary Care Provider [...]
== END 2025-01-22 23:59 | disposition home or self-care (01) ==
LOC: RAD 14:45
PROVIDERS: PCP Internal Medicine; Visit Provider Internal Medicine
DX: M25.551 Pain in right hip (principal); M25.552 Pain in left hip
CPT/HCPCS: 73502